=== PATIENT | female | born 1960 | race Caucasian/White ===

== ENCOUNTER 2016-07-28 07:58 | Emergency (ER) | payer BC, OTHER ==
[~2016-07-28] VITALS: Ht 160 cm; Wt 100.3 kg
[~2016-07-28 07:58] MED LIST: ESTR1TAB2 PO; HYDR25TA4 PO; LEVO112T4 PO; LISI-461 PO
[2016-07-28 08:06] VITALS: TEMP 36.9; Ht 160 cm; Wt 100.3 kg
[2016-07-28] MEDS ORDERED: SODIUM CHLORIDE 0.9% 500ML 500 ML IV STA (08:26)
[2016-07-28] MEDS ORDERED: ONDANSETRON INJ 2 MG/ML 2 ML VIAL IV STA (08:44)
[2016-07-28] MEDS ORDERED: OPTIRAY 320 IV PRN (08:45)
--- NOTE | 2016-07-28 08:49 | EMERGENCY ROOM VISIT NOTE ---
History First contact with patient: 08:16 Chief Complaint: FLANK PAIN Stated Complaint: BACK PAIN, NAUSEA, RT SIDE PAIN History of Present Illness The patient is a 55 year old female who presents to the Emergency Room via private vehicle with complaints of "back pain, nausea, right side pain". The patient states that she has had lower back pain since Sunday this sometimes will go the entire way across her low back and has seen a chiropractor 3 times. She complains of nausea and vomiting times the past 2 weeks off and on. She notes that 2 days ago the right lower abdominal pain began that his been off and on and today is not going away. She also notes spotting. She states that 2 weeks ago she began with vomiting, and was with her granddaughter who had a similar illness. She notes she has been vomiting off and on since that time. She believes that she put her back out from vomiting so much. She has also had 2 nosebleeds. She notes that she has had the back pain before. She feels that she has right lower quadrant abdominal pain that radiates across. She rates the pain as an 8/10. There is associated nausea, and cold sensation. She notes that she should not be spotting, but she has had a complete hysterectomy. She denies any falls or recent injury, chest pain, shortness of breath, urinary symptoms, vaginal discharge. She did have ovarian cancer in the past. Review of Systems A complete 10-point Review of Systems was discussed with the patient, with pertinent positives and negatives listed in the History of Present Illness. All remaining Review of Systems questions can be considered negative unless otherwise specified. Past Medical/Surgical History Medical Problems: (1) Family history: Ovarian carcinoma Family History No pertinent history. Social History Smoking Status: Never Smoker Marital Status: Housing Status: lives with family Current/Historical Medications Scheduled Estradiol (Estrace), 1 MG PO DAILY Hydrochlorothiazide (Hctz), 25 MG PO DAILY Levothyroxine Sodium (Levothyroxine Sodium), 112 MCG PO DAILY Lisinopril (Zestril), 10 MG PO DAILY Scheduled PRN Oxycodone Ir (Roxicodone Ir), 1-2 TAB PO Q4H PRN for Pain Allergies Coded Allergies: Codeine (Unverified Allergy, Intermediate, HIVES, 07/28/16) Physical Exam Vital Signs Date Time Temp Pulse Resp B/P Pulse Ox O2 Delivery O2 Flow Rate FiO2 07/28/16 13:04 61 16 147/88 07/28/16 11:53 58 16 136/71 97 Room Air 07/28/16 10:10 61 20 134/85 93 Room Air 07/28/16 08:06 36.9 73 18 149/89 96 Room Air Physical Exam VITAL SIGNS - Vital signs and nursing notes were reviewed. GENERAL -55-year-old female appearing her stated age who is in no acute distress. Communicates well with provider and answers questions appropriately. SKIN - Without rashes. HEAD - NC/AT. EYES - PERRL with EOMI bilaterally. Sclera anicteric. Palpebral conjunctiva pink and moist with no injection noted. EARS - No deformities of external structures noted on gross examination bilaterally. No pain elicited with palpation of the tragus bilaterally. External auditory canals without discharge or otorrhea. Tympanic membranes pearly velasquez without retraction or bulging. No fluid or purulent material visualized behind the TM. Handle of malleus, umbo, cone of light, pars tensa/ flaccid all easily visualized. NOSE - Midline and without cyanosis. No epistaxis or purulent drainage noted. Septum midline without deviation or septal hematoma noted. MOUTH/OROPHARYNX - Without perioral cyanosis. Buccal mucosa pink and moist and without leukoplakia. Tongue midline with equal elevation of palate bilaterally. No tonsillar hypertrophy, erythema, or exudates noted. Good dentition noted. NECK - Neck with FROM. Supple to palpation. No lymphadenopathy noted. No nuchal rigidity. LUNGS - Chest wall symmetric without accessory muscle use, intercostals retractions, or central cyanosis. Normal vesicular breath sounds CTA B/L. No wheezes, rales, or rhonchi appreciated. CARDIAC - RRR with S1/S2. No murmur, rubs, or gallops appreciated. ABDOMEN - Abdominal contour without pulsations or visible masses. BS normoactive all four quadrants. There is right lower quadrant tenderness. No palpable masses, hepatosplenomegaly, or ascites noted. EXTREMITIES - No clubbing or peripheral cyanosis. No pretibial edema present.+5/ 5 strength noted in UE/LE bilaterally. NEUROLOGIC - Cranial nerves II through XII grossly intact. Sensory intact to light touch throughout. Patellar reflexes +2/4. PSYCH - A&Ox3 and cooperates fully with examiner. Pt is very pleasant and interacts well with examiner. Medical Decision & Procedures ER Provider Diagnostic Interpretation: CT ABD/PELVIS IV AND ORAL CONT CLINICAL HISTORY: RLQ abdominal pain, right flank pain COMPARISON STUDY: 04/12/2015 TECHNIQUE: Following the IV administration of 119 mL of Optiray-320, CT scan of the abdomen and pelvis was performed from the lung bases to the proximal femurs. Images are reviewed in the axial, sagittal, and coronal planes. IV contrast was administered without complication. CT DOSE: 1036.98 mGy.cm FINDINGS: Lower chest: There are minor basilar atelectatic changes. Liver: The contrast-enhanced liver is normal in size, contour, and attenuation. There is no intrahepatic biliary ductal dilatation. The hepatic veins and portal veins are patent. Gallbladder: Multiple gallstones are visualized. Spleen: Normal in size and attenuation. Pancreas: Unremarkable. Adrenal glands: Unremarkable. Kidneys: There is symmetric renal cortical enhancement. The kidneys are normal in size without hydronephrosis. Bowel: There are no transition zones indicate bowel obstruction. The appendix appears normal. There is no acute diverticulitis. There is a moderate amount of stool within the rectosigmoid. There is a ventral hernia containing a knuckle of small bowel. This is nonobstructing. There is additional fat-containing left-sided ventral hernia. There is a small fat-containing umbilical hernia. Peritoneum: There is no intraperitoneal free air or abdominal ascites. Vasculature: The abdominal aorta is normal in course and caliber. Adenopathy: None. Pelvic viscera: The uterus appears surgically absent. There are cystic lesions in the cervix, likely representing nabothian gland cysts. Skeletal structures: There is a 14 mm sclerotic lesion within the left acetabulum. IMPRESSION: 1. No evidence of bowel obstruction. No evidence of free air 2. Normal appendix 3. No evidence of acute diverticulitis 4. Cholelithiasis 5. Ventral hernia containing a knuckle of small bowel. There is no current evidence of obstruction 6. Moderate amount of stool within the rectosigmoid Electronically signed by: Dash Dunlap M.D. 07/28/2016 11:38 AM Dictated Date/Time: 07/28/2016 11:32 AM Laboratory Results 07/28/16 08:40 Red Blood Count 4.38, Mean Corpuscular Volume 83.8, Mean Corpuscular Hemoglobin 28.1, Mean Corpuscular Hemoglobin Concent 33.5, Mean Platelet Volume 10.2, Neutrophils (%) (Auto) 77.2, Lymphocytes (%) (Auto) 12.2, Monocytes (%) (Auto) 8.0, Eosinophils (%) (Auto) 2.0, Basophils (%) (Auto) 0.5, Neutrophils # (Auto) 6.57, Lymphocytes # (Auto) 1.04, Monocytes # (Auto) 0.68, Eosinophils # (Auto) 0.17, Basophils # (Auto) 0.04 07/28/16 08:40 Test 07/28/16 08:30 07/28/16 08:40 Urine Color YELLOW Urine Appearance CLEAR (CLEAR) Urine pH 7.0 (4.5-7.5) Urine Specific Dobson 1.019 (1.000-1.030) Urine Protein NEG (NEG) Urine Glucose (UA) NEG (NEG) Urine Ketones NEG (NEG) Urine Occult Blood 2+ (NEG) Urine Nitrite NEG (NEG) Urine Bilirubin NEG (NEG) Urine Urobilinogen NEG (NEG) Urine Leukocyte Esterase NEG (NEG) Urine WBC (Auto) 1-5 /hpf (0-5) Urine RBC (Auto) 0-4 /hpf (0-4) Urine Hyaline Casts (Auto) 1-5 /lpf (0-5) Urine Epithelial Cells (Auto) >30 /lpf (0-5) Urine Bacteria (Auto) NEG (NEG) White Blood Count 8.51 K/uL (4.8-10.8) Red Blood Count 4.38 M/uL (4.2-5.4) Hemoglobin 12.3 g/dL (12.0-16.0) Hematocrit 36.7 % (37-47) Mean Corpuscular Volume 83.8 fL (80-100) Mean Corpuscular Hemoglobin 28.1 pg (25-34) Mean Corpuscular Hemoglobin Concent 33.5 g/dl (32-36) Platelet Count 221 K/uL (130-400) Mean Platelet Volume 10.2 fL (7.4-10.4) Neutrophils (%) (Auto) 77.2 % Lymphocytes (%) (Auto) 12.2 % Monocytes (%) (Auto) 8.0 % Eosinophils (%) (Auto) 2.0 % Basophils (%) (Auto) 0.5 % Neutrophils # (Auto) 6.57 K/uL (1.4-6.5) Lymphocytes # (Auto) 1.04 K/uL (1.2-3.4) Monocytes # (Auto) 0.68 K/uL (0.11-0.59) Eosinophils # (Auto) 0.17 K/uL (0-0.5) Basophils # (Auto) 0.04 K/uL (0-0.2) RDW Standard Deviation 40.1 fL (36.4-46.3) RDW Coefficient of Variation 13.2 % (11.5-14.5) Immature Granulocyte % (Auto) 0.1 % Immature Granulocyte # (Auto) 0.01 K/uL (0.00-0.02) Anion Gap 9.0 mmol/L (3-11) Est Creatinine Clear Calc Drug Dose 73.0 ml/min Estimated GFR () 76.1 Estimated GFR (Non- 65.7 BUN/Creatinine Ratio 17.7 (10-20) Calcium Level 9.3 mg/dl (8.5-10.1) Total Bilirubin 1.2 mg/dl (0.2-1) Aspartate Amino Transf (AST/SGOT) 82 U/L (15-37) Alanine Aminotransferase (ALT/SGPT) 51 U/L (12-78) Alkaline Phosphatase 100 U/L (45-117) Total Creatine Kinase 108 U/L (26-192) Creatine Kinase MB 1.1 ng/ml (0.5-3.6) Creatine Kinase MB Ratio 1.0 (0-3.0) Total Protein 7.6 gm/dl (6.4-8.2) Albumin 3.9 gm/dl (3.4-5.0) Globulin 3.7 gm/dl (2.5-4.0) Albumin/Globulin Ratio 1.1 (0.9-2) Amylase Level 38 U/L (25-115) Medications Administered Medications (Trade) Dose Ordered Sig/Nyasia Route Start Time Stop Time Status Last Admin Dose Admin Sodium Chloride (Nss 500ml) 500 ml @ 999 mls/hr Q31M STAT IV 07/28/16 08:26 07/28/16 08:56 DC 07/28/16 08:49 999 MLS/HR Ondansetron HCl (Zofran Inj) 4 mg NOW STAT IV 07/28/16 08:44 07/28/16 08:45 DC 07/28/16 08:54 4 MG Medical Decision Patient was seen and evaluated as above. After obtaining a thorough history and physical examination of workup was initiated. Patient is afebrile, and has stable vital signs. I'm concerned for acute appendicitis. There is also concern for bowel obstruction as the patient has had multiple abdominal surgeries. Patient also notes spotting, history of ovarian cancer with removal of the uterus. There is concern for metastasis. She did not want anything for pain. CBC reveals slightly low hematocrit, otherwise unremarkable. Sodium slightly low at 134, glucose elevated at 119, total bilirubin elevated at 1.2 and AST at 82. Urine reveals 2+ occult blood, greater than [address] scan of the abdomen was obtained secondary to subjective and objective is a findings. Results as above. I agree with radiologist findings. Patient was educated upon these findings. There is evidence of hernia, without obstruction. I do not appreciate any surgical nature to this at this emergent time. Patient is a follow-up with a general surgeon regarding today's findings. She was given Zofran for her nausea here. She notes that she has been taking Tylenol lately, but not greater than the recommended amount. The etiology of the patient's pain is unclear at this time, however I do believe follow-up is important as there is concern for potential metastasis, especially given the spotting as well as the finding on the sclerotic lesion in the left acetabulum. This does not correlate with the patient's pain. Patient was educated up on the importance of follow-up. She was educated upon management today's findings. She did request a small prescription of medication which I do believe is reasonable. She was prescribed OxyIR. She is to return with any worsening of her symptoms. She was educated upon the potential for incarceration, and is to return with any worsening or new/concerning symptoms. She was educated upon management of these findings, questions answered prior to discharge, was educated upon worrisome symptoms in which to return and was discharged home in good condition. Patient did appear comfortable upon her departure, and he was stable for discharge at this time. In evaluation treatment this patient following differential diagnoses were entertained: Metastasis, appendicitis, viral gastroenteritis, muscle strain, pyelonephritis, UTI, among others. [place] Drug Monitoring Program Search Results: patient reviewed within database, no issues identified Impression Primary Impression: Flank pain Departure Information Dispostion Home / Self-Care Condition GOOD Prescriptions Oxycodone Ir (Roxicodone Ir) 5 Mg Tab 1-2 TAB PO Q4H Y for Pain, #15 TAB For Initial Treatment Prov: Joaquin Loo PA-C 07/28/16 Referrals Mark Rose M.D. (PCP) Elisha Park MD Patient Instructions My [facility] Additional Instructions You have been treated in the Emergency Department your Abdominal Pain. Laboratory results and imaging studies have ruled out any emergent causes for your abdominal pain which would warrant admission or surgery emergently. There are several hernias of which you need to follow up for, please call the physician number above (general surgeon). If your abdominal pain would worsen, please return as we discussed. Please have your liver chemicals and bilirubin repeated with her family doctor. You have been prescribed Oxy IR to be used for pain control. This is a narcotic medication. You cannot drive or consume alcohol while on this medicine. This medicine should only be used for pain that cannot be controlled with over-the- counter pain medicines. For pain control, you can use the following [id number] medicines (if >12 yo): - Regular strength (325mg/tab) Tylenol (acetaminophen) 2 tabs every 4-6 hours as needed. Do not exceed 12 tablets in a 24 hour period. Avoid taking more than 4 grams (4000 mg) of Tylenol per day. This includes any other sources of acetaminophen you may take on a regular basis. - Regular strength (200 mg/tab) Advil (ibuprofen) 1-2 tabs every 4-6 hours as needed. Do not exceed a dose of 3200 mg per day. Drink plenty of water and stay well hydrated. As with any trip to the Emergency Department, you should follow-up with your Primary Care Provider from today's visit. Return to the emergency department if your symptoms persist despite treatment plan outlined above or if the following symptoms occur: increased fevers, chills , worsening nausea/vomiting, blood in your stool or urine.
[2016-07-28 08:53] LABS: BASO % 0.5 %; BASO ABS # 0.04 K/uL (0-0.2); COMPLETE YES; HEMATOCRIT 36.7 % (37-47); IG% 0.1 %; LYMPH % 12.2 %; LYMPH ABS # 1.04 K/uL (1.2-3.4); MEAN CELL VOLUME 83.8 fL (80-100); MEAN CORPUSCULAR HEMOGLOBIN 28.1 pg (25-34); MEAN CORPUSCULAR HGB CONC 33.5 g/dl (32-36); MEAN PLATELET VOLUME 10.2 fL (7.4-10.4); NEUT % 77.2 %; PLATELET COUNT 221 K/uL (130-400); RED BLOOD COUNT 4.38 M/uL (4.2-5.4); WHITE BLOOD COUNT 8.51 K/uL (4.8-10.8)
[2016-07-28 09:01] LABS: URINE APPEARANCE CLEAR (CLEAR); URINE BILIRUBIN NEG (NEG); URINE COLOR YELLOW; URINE EPITHELIAL CELL AUTO >30 /lpf (0-5); URINE NITRITE NEG (NEG); URINE SPECIFIC GRAVITY 1.019 (1.000-1.030); UROBILINOGEN NEG (NEG); ZZUR CULT IF INDIC CLEAN CATCH NO
[2016-07-28 09:08] LABS: BUN/CREATININE RATIO 17.7 (10-20); CALCIUM 9.3 mg/dl (8.5-10.1); CREATININE 0.96 mg/dl (0.60-1.20); POTASSIUM 3.7 mmol/L (3.5-5.1)
[2016-07-28 09:13] LABS: ALB/GLOB RATIO 1.1 (0.9-2)
[2016-07-28 09:19] LABS: MANUAL MICROSCOPIC REQUIRED? NO; REVIEW REQ? NO
--- NOTE | 2016-07-28 11:39 | DIAGNOSTIC IMAGING REPORT ---
CT ABD/PELVIS IV AND ORAL CONT CLINICAL HISTORY: RLQ abdominal pain, right flank pain COMPARISON STUDY: 04/12/2015 TECHNIQUE: Following the IV administration of 119 mL of Optiray-320, CT scan of the abdomen and pelvis was performed from the lung bases to the proximal femurs. Images are reviewed in the axial, sagittal, and coronal planes. IV contrast was administered without complication. CT DOSE: 1036.98 mGy.cm FINDINGS: Lower chest: There are minor basilar atelectatic changes. Liver: The contrast-enhanced liver is normal in size, contour, and attenuation. There is no intrahepatic biliary ductal dilatation. The hepatic veins and portal veins are patent. Gallbladder: Multiple gallstones are visualized. Spleen: Normal in size and attenuation. Pancreas: Unremarkable. Adrenal glands: Unremarkable. Kidneys: There is symmetric renal cortical enhancement. The kidneys are normal in size without hydronephrosis. Bowel: There are no transition zones indicate bowel obstruction. The appendix appears normal. There is no acute diverticulitis. There is a moderate amount of stool within the rectosigmoid. There is a ventral hernia containing a knuckle of small bowel. This is nonobstructing. There is additional fat-containing left-sided ventral hernia. There is a small fat-containing umbilical hernia. Peritoneum: There is no intraperitoneal free air or abdominal ascites. Vasculature: The abdominal aorta is normal in course and caliber. Adenopathy: None. Pelvic viscera: The uterus appears surgically absent. There are cystic lesions in the cervix, likely representing nabothian gland cysts. Skeletal structures: There is a 14 mm sclerotic lesion within the left acetabulum. IMPRESSION: 1. No evidence of bowel obstruction. No evidence of free air 2. Normal appendix 3. No evidence of acute diverticulitis 4. Cholelithiasis 5. Ventral hernia containing a knuckle of small bowel. There is no current evidence of obstruction 6. Moderate amount of stool within the rectosigmoid Electronically signed by: Dash Dunlap M.D. 07/28/2016 11:38 AM Dictated Date/Time: 07/28/2016 11:32 AM
[2016-07-28 11:53] VITALS: O2SAT 97
[2016-07-28] MEDS ORDERED: OXYC1TAB3 PO (12:59)
[2016-07-28 13:04] VITALS: BP 147/88; PULSE 61
[2017-01-31] MEDS ORDERED: TRAM-10 PO (13:08)
== END 2016-07-28 13:24 | disposition home or self-care (01) ==
LOC: C.EDB 07:59 → C.EDA 13:24
DX: R10.9 Unspecified abdominal pain (principal); R11.2 Nausea with vomiting, unspecified; Z85.43 Personal history of malignant neoplasm of ovary; Z80.41 Family history of malignant neoplasm of ovary

== ENCOUNTER → 2016-08-01 | Outpatient (CLI) | payer BC, OTHER ==
[~2016-08-01] MED LIST changes: +OXYC1TAB3 PO; +TRAM-10 PO
[2016-08-01 17:51] LABS: URINE APPEARANCE CLEAR (CLEAR); URINE BILIRUBIN NEG (NEG); URINE COLOR YELLOW; URINE NITRITE NEG (NEG); URINE SPECIFIC GRAVITY 1.018 (1.000-1.030); UROBILINOGEN NEG (NEG)
[2016-08-01 17:52] LABS: URINE EPITHELIAL CELL AUTO >30 /lpf (0-5)
[2016-08-01 17:54] LABS: MANUAL MICROSCOPIC REQUIRED? NO; REVIEW REQ? NO
[2016-08-01 17:58] LABS: THYROID STIMULATING HORMONE 0.214 uIu/ml (0.300-4.500)
== END | disposition home or self-care (01) ==
LOC: C.LABBFT 12:17
PROVIDERS: ATTEND Nurse Practitioner
DX: Z11.59 Encounter for screening for other viral diseases (principal); N92.0 Excessive and frequent menstruation with regular cycle; D64.9 Anemia, unspecified; E03.9 Hypothyroidism, unspecified

== ENCOUNTER → 2016-11-22 | Outpatient (CLI) | payer OTHER ==
[2016-11-22 17:57] LABS: THYROID STIMULATING HORMONE 0.892 uIu/ml (0.300-4.500)
--- NOTE | 2016-11-24 12:13 | CODING QUERY NO DIAGNOSIS ---
: 1960 TREATMENT RENDERED WITHOUT A DIAGNOSIS To promote full compliance with coding requirements relating to patient care, physician participation is requested in all cases of certified procedural coder uncertainty. Please assist us with providing a diagnosis/symptom for the test(s) below: A diagnosis/symptom was not documented on your Order. A valid diagnosis/symptom is required to bill all insurances. Please remember that we are unable to code a diagnosis of rule out, probable, possible, questionable, or suspected. Tests that require a diagnosis: DOS: 11/22/16 * CA 125 DIAGNOSIS: Provider Signature: Date: Thank you Tash Harris Health Information Management Once completed, please kindly fax back to [phone] For questions please call [phone]
== END | disposition home or self-care (01) ==
LOC: C.LABBFT 12:10
PROVIDERS: ATTEND Obstetrics & Gynecology Gynecologic Oncology
DX: E03.9 Hypothyroidism, unspecified (principal); Z85.43 Personal history of malignant neoplasm of ovary

== ENCOUNTER 2017-01-30 20:18 | Inpatient (IN) | payer OTHER ==
[~2017-01-30] VITALS: Ht 160 cm; Wt 97.8 kg
[~2017-01-30 20:18] MED LIST changes: -OXYC1TAB3 PO; +POTASSIUM CHLR 10 MEQ / WTR 10 MEQ in PREMIXED WATER 100 ML IV SCH; -TRAM-10 PO
[2017-01-30] MEDS ORDERED: ONDANSETRON INJ 2 MG/ML 2 ML VIAL ONE (20:40)
[2017-01-30] MEDS ORDERED: SODIUM CHLORIDE 0.9% 1000ML 1,000 ML IV ONE (20:41)
[2017-01-30] MEDS ORDERED: SODIUM CHLORIDE 0.9% 1000ML 1,000 ML IV STA ×2 (20:41→21:40)
[2017-01-30 20:52] LABS: BASO % 0.1 %; BASO ABS # 0.02 K/uL (0-0.2); COMPLETE YES; EOS % 0.2 %; HEMATOCRIT 40.5 % (37-47); IG% 0.4 %; LYMPH % 7.6 %; LYMPH ABS # 1.23 K/uL (1.2-3.4); MEAN CELL VOLUME 83.5 fL (80-100); MEAN CORPUSCULAR HEMOGLOBIN 28.2 pg (25-34); MEAN CORPUSCULAR HGB CONC 33.8 g/dl (32-36); MEAN PLATELET VOLUME 10.2 fL (7.4-10.4); MONO % 7.5 %; NEUT % 84.2 %; PLATELET COUNT 292 K/uL (130-400); RED BLOOD COUNT 4.85 M/uL (4.2-5.4); WHITE BLOOD COUNT 16.21 K/uL (4.8-10.8)
--- NOTE | 2017-01-30 21:00 | DIAGNOSTIC IMAGING REPORT ---
CHEST ONE VIEW PORTABLE CLINICAL HISTORY: Atypical chest pain COMPARISON STUDY: 05/28/2009 FINDINGS: The cardiac and mediastinal contours are normal. There is no evidence of focal pulmonary consolidation. There is no evidence of failure. No pleural effusions are visualized.[ IMPRESSION: No active disease in the chest. Electronically signed by: Dash Dunlap M.D. 01/30/2017 8:59 PM Dictated Date/Time: 01/30/2017 8:59 PM
[2017-01-30 21:04] LABS: ALT/SGPT 30 U/L (12-78); BLOOD UREA NITROGEN 15 mg/dl (7-18); BUN/CREATININE RATIO 15.3 (10-20); CALCIUM 9.9 mg/dl (8.5-10.1); CARBON DIOXIDE 30 mmol/L (21-32); CHLORIDE 103 mmol/L (98-107); CREATININE 0.99 mg/dl (0.60-1.20); GLUCOSE 130 mg/dl (70-99); POTASSIUM 3.1 mmol/L (3.5-5.1); SODIUM 140 mmol/L (136-145)
[2017-01-30 21:17] LABS: ALKALINE PHOSPHATASE 71 U/L (45-117); AST/SGOT 17 U/L (15-37); THYROID STIMULATING HORMONE 0.096 uIu/ml (0.300-4.500)
[2017-01-30] MEDS ORDERED: ONDANSETRON INJ 2 MG/ML 2 ML VIAL IV STA (21:40)
--- NOTE | 2017-01-30 21:40 | DIAGNOSTIC IMAGING REPORT ---
CT SCAN OF THE ABDOMEN AND PELVIS WITHOUT CONTRAST CLINICAL HISTORY: Generalized abdominal pain COMPARISON STUDY: 07/28/2016 TECHNIQUE: CT scan of the abdomen and pelvis was performed from the lung bases to the proximal femurs. Images are reviewed in the axial, sagittal, and coronal planes. IV contrast was not administered for this examination. A dose lowering technique was utilized adhering to the principles of ALARA. CT DOSE: 1029.50 mGycm FINDINGS: Lower chest: There are minimal dependent atelectatic changes Liver: The unenhanced liver is normal in size, contour, and attenuation. There is no intrahepatic biliary ductal dilatation. Gallbladder: There are multiple gallstones with gallbladder wall thickening/pericholecystic fluid. Clinical correlation regards to cholecystitis is recommended. Spleen: Normal in size and attenuation. Pancreas: Unremarkable. Adrenal glands: Unremarkable. Kidneys: No renal, ureteral, or bladder calculi are visualized. Bowel: There are no transition zones indicate bowel obstruction. There is no acute diverticulitis. The appendix appears normal. Peritoneum: There is no intraperitoneal free air or abdominal ascites. There is a small fat-containing umbilical hernia. There are several lower abdominal fat-containing ventral hernias. Vasculature: The abdominal aorta is normal in course and caliber. Adenopathy: Minimally prominent aortocaval lymph nodes remain unchanged. Pelvic viscera: The uterus appears surgically absent. There are cystic lesions in the cervix, likely representing nabothian gland cysts. Skeletal structures: There is left symphysis sclerosis. There is a stable 14 mm sclerotic lesion within the left acetabulum. IMPRESSION: 1. No evidence of bowel obstruction. No evidence of free air 2. Normal appendix 3. No evidence of acute diverticulitis 4. Fat-containing abdominal wall hernias 5. Multiple gallstones. Gallbladder wall thickening/pericholecystic fluid. Clinical correlation in regards to acute cholecystitis is recommended. Electronically signed by: Dash Dunlap M.D. 01/30/2017 9:38 PM Dictated Date/Time: 01/30/2017 9:34 PM
[2017-01-30] MEDS ORDERED: PIPERACILLIN/TAZOBACTAM 4.5 GM/100ML D5W IV STA (22:02)
[2017-01-30] MEDS ORDERED: POTASSIUM CHLORIDE 10 MEQ TABCR PO STA (22:30)
[2017-01-30] MEDS ORDERED: MAGNESIUM SULFATE 1GM / D5W 1 GM IV STA (22:41)
[2017-01-30] MEDS ORDERED: METOCLOPRAMIDE HCL INJ 5 MG/ML 2 ML VIAL IV PRN (22:45)
[2017-01-30] MEDS ORDERED: ZOLPIDEM TARTRATE 5 MG TAB PO PRN (22:45)
[2017-01-30] MEDS ORDERED: ONDANSETRON INJ 2 MG/ML 2 ML VIAL IV PRN (22:45)
[2017-01-30] MEDS ORDERED: ACETAMINOPHEN 325 MG TAB PO PRN (22:45)
--- NOTE | 2017-01-30 22:46 | Surgery Consultation ---
Consultation Date of Consultation: Jan 30, 2017. Attending Physician: History of Present Illness The patient is a 56 year old female who presents to the Emergency Room with complaints of worsening vomiting starting last night. The patient states that she does not know how many episodes she has had. She reports that it has been mass amounts and that it is green. The patient complains of abdominal pain, fever, diarrhea, headache, and chest pain. She believes her abdominal pain and chest pain could be from throwing up. The patient denies a history of a blockage or adhesions, blood in her vomit, and shortness of breath. The patient notes she has a hernia, but has not had surgery. He states that she was told that her gallbladder is full of stones. She notes a history of cancer that ended in a hysterectomy and a 19.5 lb mass removal in 2009. She notes she has been cancer free since then. I saw pt in ER, I reviewed H/P with pt, RUQ pain for a day, with nausea and vomiting, [place] [id number]. pt requests to do cholecystectomy, Past Medical/Surgical History Medical Problems: (1) Flank pain Status: Acute (2) Hand contusion Status: Acute Family History No significant family history Social History Smoking Status: Never Smoker Smokeless Tobacco Use: No Alcohol Use: occasionally Drug Use: none Marital Status: Housing Status: lives with family Allergies Coded Allergies: Codeine (Unverified Allergy, Intermediate, HIVES, 01/30/17) Home Medications Scheduled Estradiol (Estrace), 1 MG PO DAILY Hydrochlorothiazide (Hctz), 25 MG PO DAILY Levothyroxine Sodium (Levothyroxine Sodium), 112 MCG PO DAILY Lisinopril (Zestril), 10 MG PO DAILY Current Inpatient Medications Current Inpatient Medications Medications (Trade) Dose Ordered Sig/Nyasia Route Start Time Stop Time Status Last Admin Dose Admin Sodium Chloride 1,000 ml @ 200 mls/hr Q5H ONCE IV 01/30/17 20:41 01/31/17 01:40 Sodium Chloride 1,000 ml @ 999 mls/hr Q1H1M STAT IV 01/30/17 21:40 01/30/17 22:40 01/30/17 21:47 999 MLS/HR Review of Systems Constitutional: No fever, No chills, No sweats, No weight loss, No weakness, No fatigue, No problem reported Eyes: No worsening of vision, No eye pain, No redness, No discharge, No diplopia, No problem reported ENT: No hearing loss, No unusual epistaxis, No nasal symptoms, No sore throat, No tinnitus, No dental problems, No trouble swallowing, No problem reported Respiratory: No cough, No sputum, No wheezing, No shortness of breath, No dyspnea on exertion, No dyspnea at rest, No hemoptysis, No problem reported Cardiovascular: No chest pain, No orthopnea, No PND, No edema, No claudication , No palpitations, No problem reported Abdomen: + pain, + nausea, + vomiting Musculoskeletal: No joint pain, No muscle pain, No swelling, No calf pain, No problem reported Neurologic: No memory loss, No paralysis, No weakness, No numbness/tingling, No vertigo, No balance problems, No problem reported Psychiatric: No depression symptoms, No anhedonism, No anxiety, No insomnia, No substance abuse, No problem reported Endocrine: No fatigue, No excessive thirst, No excessive urination, No problem reported Hematologic / Lymphatic: No abnormal bleeding/bruising, No clotting problems, No swollen lymph nodes, No night sweats, No problem reported Physical Exam Date Time Temp Pulse Resp B/P (MAP) Pulse Ox O2 Delivery O2 Flow Rate FiO2 01/30/17 20:23 36.8 82 16 157/86 99 Room Air General Appearance: WD/WN, + mild distress Head: normocephalic Eyes: normal inspection ENT: normal ENT inspection Neck: supple, no JVD Respiratory/Chest: chest non-tender, lungs clear Cardiovascular: regular rate, rhythm, no edema, no gallop, no JVD Abdomen/GI: + tenderness, + guarding (tenderness at RUQ, ) Back: normal inspection Extremities/Musculoskelatal: normal inspection, no calf tenderness, normal capillary refill Neurologic/Psych: no motor/sensory deficits, alert, normal mood/affect Skin: normal color, warm/dry Laboratory Results Last 24 Hours Test 01/30/17 20:30 White Blood Count 16.21 K/uL Red Blood Count 4.85 M/uL Hemoglobin 13.7 g/dL Hematocrit 40.5 % Mean Corpuscular Volume 83.5 fL Mean Corpuscular Hemoglobin 28.2 pg Mean Corpuscular Hemoglobin Concent 33.8 g/dl Platelet Count 292 K/uL Mean Platelet Volume 10.2 fL Neutrophils (%) (Auto) 84.2 % Lymphocytes (%) (Auto) 7.6 % Monocytes (%) (Auto) 7.5 % Eosinophils (%) (Auto) 0.2 % Basophils (%) (Auto) 0.1 % Neutrophils # (Auto) 13.64 K/uL Lymphocytes # (Auto) 1.23 K/uL Monocytes # (Auto) 1.22 K/uL Eosinophils # (Auto) 0.04 K/uL Basophils # (Auto) 0.02 K/uL RDW Standard Deviation 39.3 fL RDW Coefficient of Variation 12.9 % Immature Granulocyte % (Auto) 0.4 % Immature Granulocyte # (Auto) 0.06 K/uL Sodium Level 140 mmol/L Potassium Level 3.1 mmol/L Chloride Level 103 mmol/L Carbon Dioxide Level 30 mmol/L Anion Gap 7.0 mmol/L Blood Urea Nitrogen 15 mg/dl Creatinine 0.99 mg/dl Est Creatinine Clear Calc Drug Dose 69.0 ml/min Estimated GFR () 72.8 Estimated GFR (Non- 62.8 BUN/Creatinine Ratio 15.3 Random Glucose 130 mg/dl Calcium Level 9.9 mg/dl Total Bilirubin 0.4 mg/dl Direct Bilirubin < 0.1 mg/dl Aspartate Amino Transf (AST/SGOT) 17 U/L Alanine Aminotransferase (ALT/SGPT) 30 U/L Alkaline Phosphatase 71 U/L Total Protein 8.4 gm/dl Albumin 4.2 gm/dl Lipase 117 U/L Thyroid Stimulating Hormone (TSH) 0.096 uIu/ml Assessment & Plan CT scan- IMPRESSION: 1. No evidence of bowel obstruction. No evidence of free air 2. Normal appendix 3. No evidence of acute diverticulitis 4. Fat-containing abdominal wall hernias 5. Multiple gallstones. Gallbladder wall thickening/pericholecystic fluid. Clinical correlation in regards to acute cholecystitis is recommended. IMP: acute cholecystitis, cholelithiasis Plan. I recommend to do laparoscopic cholecystectomy, possible open or cholangiogram, D/W benefits, risks nnd alternatives of the procedure, the risks - infection, bleeding, injury CBD, Bwel, [place], risks of anesthesia, pt understood , she agrees with the plan, I answered all questions,
--- NOTE | 2017-01-30 22:47 | History and Physical ---
History & Physical Date & Time of Service: Jan 30, 2017 at 22:44 Chief Complaint: Vomiting, Sore Belly Primary Care Physician: Mark Rose M.D. History of Present Illness Source: patient 56 y/o F Hx Hypothyroidism, HTN, obesity. Pt presents with acute onset and progressive abdominal pain, nausea and copious bilious vomiting. She has not had a fever. Denies CP, SOB or diarrhea. A CT abdomen is consistent with acute cholecystitis. The pt was evaluated by surgery on arrival to the ER. It is requested that the hospitalist service assume care of the pt following surgery. Past Medical/Surgical History Medical Problems: 1) Hypothyroidism 2) Obesity 3) HTN 4) Ovarian mass - 19 lb mass resected - does not know specifics Family History No significant family history Mother owing to CA Father COPD Social History Smoking Status: Never Smoker Marital Status: Immunizations History of Influenza Vaccine: No History of Tetanus Vaccine?: Unknown History of Pneumococcal: No History of Hepatitis B Vaccine: Unknown Multi-Drug Resistant Organisms History of MDRO: No Allergies Coded Allergies: Codeine (Unverified Allergy, Intermediate, HIVES, 01/30/17) Home Medications Scheduled Estradiol (Estrace), 1 MG PO DAILY Hydrochlorothiazide (Hctz), 25 MG PO DAILY Levothyroxine Sodium (Levothyroxine Sodium), 112 MCG PO DAILY Lisinopril (Zestril), 10 MG PO DAILY Review of Systems Constitutional: + chills, + sweats, No fever Eyes: No worsening of vision ENT: No hearing loss, No unusual epistaxis, No nasal symptoms Respiratory: No cough, No sputum, No wheezing Cardiovascular: + chest pain (Cebtral - epigastric - related to vomiting), No orthopnea, No PND Abdomen: + pain, + nausea, + vomiting Musculoskeletal: No joint pain, No muscle pain Genitourinary - Female: No dysuria, No urinary frequency, No urinary urgency Neurologic: No memory loss, No paralysis, No weakness Psychiatric: No depression symptoms Endocrine: No fatigue Hematologic / Lymphatic: No abnormal bleeding/bruising Integumentary: No rash Allergic / Immunologic: No environmental allergies Physical Exam Vital Signs Date Time Temp Pulse Resp B/P (MAP) Pulse Ox O2 Delivery O2 Flow Rate FiO2 01/30/17 20:23 36.8 82 16 157/86 99 Room Air General Appearance: + pertinent finding (Uncomfortable appearing, overweight, middle-aged female - no distress) Head: normocephalic, atraumatic Eyes: normal inspection ENT: normal ENT inspection, hearing grossly normal, TMs normal, pharynx normal Neck: supple, no JVD Respiratory/Chest: chest non-tender, lungs clear, normal breath sounds Cardiovascular: regular rate, rhythm, no edema, no gallop, no JVD, no murmur Abdomen/GI: + pertinent finding (Diffusely tender) Back: normal inspection, no CVA tenderness Extremities/Musculoskelatal: normal inspection, no calf tenderness, normal capillary refill, no pedal edema, normal range of motion Neurologic/Psych: [employer] II-XII nml as tested, no motor/sensory deficits, alert, oriented x 3 Skin: normal color Diagnostics Laboratory Results Results Past 24 Hours Test 01/30/17 20:30 Range/Units White Blood Count 16.21 4.8-10.8 K/uL Red Blood Count 4.85 4.2-5.4 M/uL Hemoglobin 13.7 12.0-16.0 g/dL Hematocrit 40.5 37-47 % Mean Corpuscular Volume 83.5 80-100 fL Mean Corpuscular Hemoglobin 28.2 25-34 pg Mean Corpuscular Hemoglobin Concent 33.8 32-36 g/dl Platelet Count 292 130-400 K/uL Mean Platelet Volume 10.2 7.4-10.4 fL Neutrophils (%) (Auto) 84.2 % Lymphocytes (%) (Auto) 7.6 % Monocytes (%) (Auto) 7.5 % Eosinophils (%) (Auto) 0.2 % Basophils (%) (Auto) 0.1 % Neutrophils # (Auto) 13.64 1.4-6.5 K/uL Lymphocytes # (Auto) 1.23 1.2-3.4 K/uL Monocytes # (Auto) 1.22 0.11-0.59 K/uL Eosinophils # (Auto) 0.04 0-0.5 K/uL Basophils # (Auto) 0.02 0-0.2 K/uL RDW Standard Deviation 39.3 36.4-46.3 fL RDW Coefficient of Variation 12.9 11.5-14.5 % Immature Granulocyte % (Auto) 0.4 % Immature Granulocyte # (Auto) 0.06 0.00-0.02 K/uL Sodium Level 140 136-145 mmol/L Potassium Level 3.1 3.5-5.1 mmol/L Chloride Level 103 98-107 mmol/L Carbon Dioxide Level 30 21-32 mmol/L Anion Gap 7.0 3-11 mmol/L Blood Urea Nitrogen 15 7-18 mg/dl Creatinine 0.99 0.60-1.20 mg/dl Est Creatinine Clear Calc Drug Dose 69.0 ml/min Estimated GFR () 72.8 Estimated GFR (Non- 62.8 BUN/Creatinine Ratio 15.3 10-20 Random Glucose 130 70-99 mg/dl Calcium Level 9.9 8.5-10.1 mg/dl Total Bilirubin 0.4 0.2-1 mg/dl Direct Bilirubin < 0.1 0-0.2 mg/dl Aspartate Amino Transf (AST/SGOT) 17 15-37 U/L Alanine Aminotransferase (ALT/SGPT) 30 12-78 U/L Alkaline Phosphatase 71 45-117 U/L Total Protein 8.4 6.4-8.2 gm/dl Albumin 4.2 3.4-5.0 gm/dl Lipase 117 73-393 U/L Thyroid Stimulating Hormone (TSH) 0.096 0.300-4.500 uIu/ml Diagnostic Radiology CT abdomen 1. No evidence of bowel obstruction. No evidence of free air 2. Normal appendix 3. No evidence of acute diverticulitis 4. Fat-containing abdominal wall hernias 5. Multiple gallstones. Gallbladder wall thickening/pericholecystic fluid. Clinical correlation in regards to acute cholecystitis is recommended. Impression Assessment and Plan 56 y/o F Hx Hypothyroidism, HTN, obesity. Pt presents with acute onset and progressive abdominal pain, nausea and copious bilious vomiting. She has not had a fever. Denies CP, SOB or diarrhea. A CT abdomen is consistent with acute cholecystitis. The pt was evaluated by surgery on arrival to the ER. It is requested that the hospitalist service assume care of the pt following surgery. 1) Acute cholecystitis - Pt to proceed to OR - placed on Unasyn, aggressive IVF - narcotics and antiemetics provided PRN. She does not have any appreciable cardiovascular risks for surgery and her RCRI is 0.4%. She is at [facility] - may need BIPAP for a period following surgery. 2) Hypothyroidism - TSH is low - would hold off on Synthroid for a few days and follow up with primary prior to resuming. 3) HTN - antihypertensives held - can resume AM or sub post-op if needed. Full code - SCDs Total time for this admit including review of labs, meds, imaging, records - discussion with pt and ER attending - 38 min Level of Care Med/Surg Resuscitation Status FULL RESUSCITATION VTE Prophylaxis VTE Risk Assessment Done? Y/N: Yes Risk Level: Moderate Given or contraindicated: SCD's
[2017-01-30] MEDS ORDERED: BUPIVACAINE 0.5 % 5 MG/1 ML MPF 30ML VIAL ONE (23:29)
[2017-01-30] MEDS ORDERED: BACITRACIN OINT 15 GM TUBE ONE (23:29)
[2017-01-30] MEDS ORDERED: LIDOCAINE HCL 1% 20 ML VIAL ONE (23:29)
[2017-01-30] MEDS ORDERED: FENTANYL CITRATE INJ 50 MCG/1 ML 2 ML VIAL ONE (23:52)
[2017-01-30] MEDS ORDERED: MIDAZOLAM HCL 1 MG/ML 2ML VIAL ONE (23:52)
[2017-01-31] VITALS (10 sets, daily range): BP systolic 105–125; BP diastolic 63–78; PULSE 65–83; TEMP 36.3–37.3; O2SAT 94–99; Ht 160 cm; Wt 97.8 kg
--- NOTE | 2017-01-31 00:09 | History & Physical Bridge Note ---
H&P Re-Evaluation Bridge Note: I have examined the patient, reviewed the History & Physical and in the interval since the performance of the History & Physical I have noted the following changes of clinical significance: No changes noted
[2017-01-31] MEDS ORDERED: SCOPOLAMINE 1.5 MG TDSY TD ONE (00:29)
[2017-01-31] MEDS ORDERED: CEFAZOLIN SOD 1 GM VIAL ONE (00:30)
[2017-01-31] MEDS ORDERED: METOCLOPRAMIDE HCL INJ 5 MG/ML 2 ML VIAL ONE (00:56)
[2017-01-31] MEDS ORDERED: SUCCINYLCHOLINE 100MG/5ML SYR IV ONE (00:56)
[2017-01-31] MEDS ORDERED: ONDANSETRON INJ 2 MG/ML 2 ML VIAL ONE (00:56)
[2017-01-31] MEDS ORDERED: NEOSTIGMINE METHYLSULFATE 5 MG/5 ML SYR ONE (00:56)
[2017-01-31] MEDS ORDERED: PROPOFOL IV EMULSION 10 MG/ML 20 ML VIAL IV ONE (00:56)
[2017-01-31] MEDS ORDERED: GLYCOPYRROLATE INJ 0.2 MG/ML VIAL ONE (00:56)
[2017-01-31] MEDS ORDERED: ROCURONIUM BROMIDE 10 MG/ML 5 ML VIAL IV ONE ×2 (00:56→02:51)
[2017-01-31] MEDS ORDERED: FENTANYL CITRATE INJ 50 MCG/1 ML 2 ML VIAL ONE (01:35)
--- NOTE | 2017-01-31 01:49 | EMERGENCY ROOM VISIT NOTE ---
History Report prepared by Jovany: Dian Love Under the Supervision of: Dr. [place] Paz M.D. First contact with patient: 20:27 Chief Complaint: VOMITING Stated Complaint: VOMITING, SORE BELLY History of Present Illness The patient is a 56 year old female who presents to the Emergency Room with complaints of worsening vomiting starting last night. The patient states that she does not know how many episodes she has had. She reports that it has been mass amounts and that it is green. The patient complains of abdominal pain, fever, diarrhea, headache, and chest pain. She believes her abdominal pain and chest pain could be from throwing up. The patient denies a history of a blockage or adhesions, blood in her vomit, and shortness of breath. The patient notes she has a hernia, but has not had surgery. He states that she was told that her gallbladder is full of stones. She notes a history of cancer that ended in a hysterectomy and a 19.5 lb mass removal in 2009. She notes she has been cancer free since then. Source of History: patient Onset: last night Position: other (global) Quality: other (global) Timing: worsening Associated Symptoms: + fevers, + headache, + chest pain, + abdominal pain, + diarrhea, No SOB Note: The patient denies a history of blockage or adhesions and blood in her vomit. Review of Systems See HPI for pertinent positives & negatives. A total of 10 systems reviewed and were otherwise negative. Past Medical & Surgical Medical Problems: (1) Acute cholecystitis (2) Family history: Ovarian carcinoma (3) Hernia Old medical records were reviewed. Nurse's notes were reviewed and I agree with. Family History No significant family history Social History Smoking Status: Never Smoker Drug Use: none Marital Status: Housing Status: lives with family Current/Historical Medications Scheduled Estradiol (Estrace), 1 MG PO DAILY Hydrochlorothiazide (Hctz), 25 MG PO DAILY Levothyroxine Sodium (Levothyroxine Sodium), 112 MCG PO DAILY Lisinopril (Zestril), 10 MG PO DAILY Allergies Coded Allergies: Codeine (Unverified Allergy, Intermediate, HIVES, 01/30/17) Physical Exam Vital Signs Date Time Temp Pulse Resp B/P (MAP) Pulse Ox O2 Delivery O2 Flow Rate FiO2 01/31/17 00:20 36.8 82 16 157/86 99 01/30/17 20:23 36.8 82 16 157/86 99 Room Air Physical Exam General: Well developed well nourished in no acute distress, breathing comfortably on room air. Normal speech. Uncomfortable appearing middle aged female holding emesis bag. HEENT: Normal cephalic atraumatic. Pupils are equal round and reactive to light. Sclera anicteric. Baseline disconjugate gaze. Extraocular movements are intact. Oropharynx is pink with moist mucous membranes. No swelling of the mouth lips or tongue. Neck: Supple with a midline trachea. No meningeal signs or stiffness, no JVD or bruits. No Stridor. Chest: Clear to auscultation bilaterally. No wheezes or rhonchi. No increased work of breathing. Heart: regular rate and rhythm. Abdomen: Soft, mildly diffusely tender but mostly in the right upper abdomen, no peritonitis or masses, nondistended without rebound guarding or rigidity. Extremities: No cyanosis clubbing or edema. No calf tenderness or assymetry Spine/Back. Non tender to palpation. No CVA tenderness Skin: Good turgor without rashes. Neurologic exam: Cranial nerves two through 12 are intact. Motor and sensation are intact and symmetrical throughout. Medical Decision & Procedures ER Provider Diagnostic Interpretation: Radiology results as stated below per my review and radiologist interpretation: CHEST ONE VIEW PORTABLE CLINICAL HISTORY: Atypical chest pain COMPARISON STUDY: 05/28/2009 FINDINGS: The cardiac and mediastinal contours are normal. There is no evidence of focal pulmonary consolidation. There is no evidence of failure. No pleural effusions are visualized.[ IMPRESSION: No active disease in the chest. Electronically signed by: Dash Dunlap M.D. 01/30/2017 8:59 PM Dictated Date/Time: 01/30/2017 8:[address] SCAN OF THE ABDOMEN AND PELVIS WITHOUT CONTRAST CLINICAL HISTORY: Generalized abdominal pain COMPARISON STUDY: 07/28/2016 TECHNIQUE: CT scan of the abdomen and pelvis was performed from the lung bases to the proximal femurs. Images are reviewed in the axial, sagittal, and coronal planes. IV contrast was not administered for this examination. A dose lowering technique was utilized adhering to the principles of ALARA. CT DOSE: 1029.50 mGycm FINDINGS: Lower chest: There are minimal dependent atelectatic changes Liver: The unenhanced liver is normal in size, contour, and attenuation. There is no intrahepatic biliary ductal dilatation. Gallbladder: There are multiple gallstones with gallbladder wall thickening/pericholecystic fluid. Clinical correlation regards to cholecystitis is recommended. Spleen: Normal in size and attenuation. Pancreas: Unremarkable. Adrenal glands: Unremarkable. Kidneys: No renal, ureteral, or bladder calculi are visualized. Bowel: There are no transition zones indicate bowel obstruction. There is no acute diverticulitis. The appendix appears normal. Peritoneum: There is no intraperitoneal free air or abdominal ascites. There is a small fat-containing umbilical hernia. There are several lower abdominal fat-containing ventral hernias. Vasculature: The abdominal aorta is normal in course and caliber. Adenopathy: Minimally prominent aortocaval lymph nodes remain unchanged. Pelvic viscera: The uterus appears surgically absent. There are cystic lesions in the cervix, likely representing nabothian gland cysts. Skeletal structures: There is left symphysis sclerosis. There is a stable 14 mm sclerotic lesion within the left acetabulum. IMPRESSION: 1. No evidence of bowel obstruction. No evidence of free air 2. Normal appendix 3. No evidence of acute diverticulitis 4. Fat-containing abdominal wall hernias 5. Multiple gallstones. Gallbladder wall thickening/pericholecystic fluid. Clinical correlation in regards to acute cholecystitis is recommended. Electronically signed by: Dash Dunlap M.D. 01/30/2017 9:38 PM Dictated Date/Time: 01/30/2017 9:34 PM US GALLBLADDER: Gallbladder distended with sludge and gallstones. Wall thickening measuring 5 mm with pericholecystic fluid. Findings suggest cholecystitis. Clinical and laboratory correlation requested. No biliary dilatation. CBD measures 4 mm. Liver, right kidney unremarkable. Radiologist: Lorin Millan M.D. Study ready at 23:15 and initial results transmitted at 23:34. Laboratory Results 01/30/17 20:30 Red Blood Count 4.85, Mean Corpuscular Volume 83.5, Mean Corpuscular Hemoglobin 28.2, Mean Corpuscular Hemoglobin Concent 33.8, Mean Platelet Volume 10.2, Neutrophils (%) (Auto) 84.2, Lymphocytes (%) (Auto) 7.6, Monocytes (%) (Auto) 7.5, Eosinophils (%) (Auto) 0.2, Basophils (%) (Auto) 0.1, Neutrophils # (Auto) 13.64, Lymphocytes # (Auto) 1.23, Monocytes # (Auto) 1.22, Eosinophils # (Auto) 0.04, Basophils # (Auto) 0.02 01/30/17 20:30 Test 01/30/17 20:30 White Blood Count 16.21 K/uL (4.8-10.8) Red Blood Count 4.85 M/uL (4.2-5.4) Hemoglobin 13.7 g/dL (12.0-16.0) Hematocrit 40.5 % (37-47) Mean Corpuscular Volume 83.5 fL (80-100) Mean Corpuscular Hemoglobin 28.2 pg (25-34) Mean Corpuscular Hemoglobin Concent 33.8 g/dl (32-36) Platelet Count 292 K/uL (130-400) Mean Platelet Volume 10.2 fL (7.4-10.4) Neutrophils (%) (Auto) 84.2 % Lymphocytes (%) (Auto) 7.6 % Monocytes (%) (Auto) 7.5 % Eosinophils (%) (Auto) 0.2 % Basophils (%) (Auto) 0.1 % Neutrophils # (Auto) 13.64 K/uL (1.4-6.5) Lymphocytes # (Auto) 1.23 K/uL (1.2-3.4) Monocytes # (Auto) 1.22 K/uL (0.11-0.59) Eosinophils # (Auto) 0.04 K/uL (0-0.5) Basophils # (Auto) 0.02 K/uL (0-0.2) RDW Standard Deviation 39.3 fL (36.4-46.3) RDW Coefficient of Variation 12.9 % (11.5-14.5) Immature Granulocyte % (Auto) 0.4 % Immature Granulocyte # (Auto) 0.06 K/uL (0.00-0.02) Anion Gap 7.0 mmol/L (3-11) Est Creatinine Clear Calc Drug Dose 69.0 ml/min Estimated GFR () 72.8 Estimated GFR (Non- 62.8 BUN/Creatinine Ratio 15.3 (10-20) Calcium Level 9.9 mg/dl (8.5-10.1) Total Bilirubin 0.4 mg/dl (0.2-1) Direct Bilirubin < 0.1 mg/dl (0-0.2) Aspartate Amino Transf (AST/SGOT) 17 U/L (15-37) Alanine Aminotransferase (ALT/SGPT) 30 U/L (12-78) Alkaline Phosphatase 71 U/L (45-117) Total Protein 8.4 gm/dl (6.4-8.2) Albumin 4.2 gm/dl (3.4-5.0) Lipase 117 U/L (73-393) Thyroid Stimulating Hormone (TSH) 0.096 uIu/ml (0.300-4.500) Laboratory studies as stated above per my review. Medications Administered Medications (Trade) Dose Ordered Sig/Nyasia Route Start Time Stop Time Status Last Admin Dose Admin Ondansetron HCl (Zofran Inj) 4 mg STK-MED ONCE .ROUTE 01/30/17 20:40 01/30/17 20:41 DC 01/30/17 20:40 4 MG Sodium Chloride 1,000 ml @ 999 mls/hr Q1H1M STAT IV 01/30/17 20:41 01/30/17 21:41 DC 01/30/17 20:41 999 MLS/HR Ondansetron HCl (Zofran Inj) 4 mg NOW STAT IV 01/30/17 21:40 01/30/17 21:41 DC 01/30/17 21:47 4 MG Sodium Chloride 1,000 ml @ 999 mls/hr Q1H1M STAT IV 01/30/17 21:40 01/30/17 22:40 DC 01/30/17 21:47 999 MLS/HR Piperacillin Sod/ Tazobactam Sod (Zosyn Iv) 4.5 gm NOW STAT IV 01/30/17 22:02 01/30/17 22:03 DC 01/30/17 22:29 4.5 GM Potassium Chloride (Klor-Con M10) 40 meq NOW STAT PO 01/30/17 22:30 01/30/17 22:32 DC 01/30/17 22:35 40 MEQ Magnesium Sulfate 100 ml @ 100 mls/hr NOW STAT IV 01/30/17 22:41 01/30/17 23:40 DC 01/30/17 23:26 100 MLS/HR ECG Indication: vomiting Rate (beats per minute): 56 Rhythm: sinus bradycardia Findings: nonspecific-ST abn, no ectopy Comparison ECG Date: 05/28/2009 Change: Rate has decreased. ED Course 2033: Past medical records reviewed. The patient was evaluated in room C8, and a complete history and physical examination were performed. 2039: Ordered Zofran Inj 4 mg. 2040: Ordered NSS 1000 ml @ 200 mls/hr IV, NSS 1000 ml @ 999 mls/hr IV. 2137: I reevaluated the patient and she still feels the same. She is still nauseous so I ordered more fluids and Zofran. We are waiting for the CT. 2139: Ordered NSS 1000 ml @ 999 mls/hr IV, Zofran Inj 4 mg IV. 2201: Ordered Zosyn Iv 4.5 gm IV. 2205: Discussed the patient's case with Dr. Bradshaw- Surgery. The patient will be evaluated for further management. He wants an US ordered. 2207: I reevaluated the patient and updated her on her test results. 2226: Dr. Bradshaw is taking the patient to the OR. 2229: Ordered Potassium Chloride 40 meq PO. Medical Decision Differential diagnoses include bowel obstruction, colitis, gallbladder disease, UTI, infection, metabolic abnormality, electrolyte abnormality. This patient comes in as described above . She's been feeling sick since yesterday. she's been vomiting and has right upper quadrant abdominal pain. She has known history of gallstones. She has had abdominal hernias as well but on exam I do not appreciate any significant hernias. She is not focally tender red or warm. She has a remote history ovarian cancer but has no history of bowel obstruction. IV access established and hydrated 1 L IV normal saline bolus and given Zofran 4 mg IV. She received a second dose of IV Zofran as well as further IV fluids. She does have an elevated white count. Her lipase liver functions are not elevated. EKG shows no definite ischemic changes with some nonspecific ST abnormalities .troponin is not elevated. Chest x-ray does not show any abnormalities or free air a CAT scan of her abdomen shows what appears be acute cholecystitis. I did consult the surgeon on-call Dr. Bradshaw. I gave the patient Zosyn 4.5 g IV and additionally gave her 40 mEq of potassium chloride by mouth. I also ordered an ultrasound per his request and he saw the patient ER the ultrasound further confirms acute cholecystitis and he took her to the OR for a cholecystectomy Consults Time Called: 2158 Consulting Physician: Dr. Bradshaw- Jovita Returned Call: [phone] Discussed the patient's case with Dr. Zhanna Hussein. The patient will be evaluated for further management. He wants an US ordered. Impression Primary Impression: Acute cholecystitis Additional Impressions: Vomiting Hypokalemia Scribe Attestation The scribe's documentation has been prepared under my direction and personally reviewed by me in its entirety. I confirm that the note above accurately reflects all work, treatment, procedures, and medical decision making performed by me. Departure Information Dispostion Being Evaluated By Surgeon Referrals Mark Rose M.D. (PCP) Patient Instructions My [facility] Problem Qualifiers
--- NOTE | 2017-01-31 03:20 | [facility] Post Operative Brief Note ---
Immediate Operative Summary Operative Date Jan 31, 2017. Pre-Operative Diagnosis Acute cholecystitis, cholelithiasis Post-Operative Diagnosis Acute cholecystitis, cholelithiasis Procedure(s) Performed Laparoscopic Subtotal Cholecystectomy Surgeon Dr. Bradshaw Relationship Specialist Surgeon(s) None Estimated Blood Loss 50mL Findings significant inflammation on gallbladder with gallbladder wall thickening, edema , with multiple stones Fluids (cc crystalloids) 1200ml Specimens A: Gallbladder & contents Drains KYRIE X 1 Anesthesia general Complication(s) None Disposition Recovery Room / PACU
[2017-01-31] MEDS ORDERED: HYDROmorphone INJ 0.5 MG/0.5 ML SYR IV PRN ×2 (03:30)
[2017-01-31] MEDS ORDERED: OXYCODONE/ACETAMINOPHEN 5-325 TAB PO PRN (03:30)
[2017-01-31] MEDS ORDERED: PROMETHAZINE HCL INJ 12.5 MG in SODIUM CHLORIDE 0.9% 50ML 50 ML IV PRN (03:30)
[2017-01-31] MEDS ORDERED: LABETALOL HCL IV 5 MG/ML 20ML IV PRN (03:30)
[2017-01-31] MEDS ORDERED: ATROPINE SULFATE 0.1 MG/ML 5ML SYR IV PRN (03:30)
[2017-01-31] MEDS ORDERED: ONDANSETRON INJ 2 MG/ML 2 ML VIAL IV PRN (03:30)
[2017-01-31] MEDS ORDERED: HYDROmorphone INJ 2 MG/ML SYR/VIAL IV PRN (03:30)
--- NOTE | 2017-01-31 03:47 | Anesthesiology Progress Note ---
Anesthesia Post Op Note Date & Time Jan 31, 2017 at 03:47 Vital Signs Vital Signs Past 12 Hours Date Time Temp Pulse Resp B/P (MAP) Pulse Ox O2 Delivery O2 Flow Rate FiO2 01/31/17 03:40 36.7 58 16 125/75 100 Oxymask 4 01/31/17 03:30 36.8 58 13 118/70 100 Oxymask 5 01/31/17 03:20 36.8 64 17 128/71 100 Oxymask 5 01/31/17 00:20 36.8 82 16 157/86 99 01/30/17 20:23 36.8 82 16 157/86 99 Room Air Notes Mental Status: alert / awake / arousable, participated in evaluation Pt Amnestic to Procedure: Yes Nausea / Vomiting: adequately controlled Pain: adequately controlled Airway Patency, RR, SpO2: stable & adequate BP & HR: stable & adequate Hydration State: stable & adequate Anesthetic Complications: no major complications apparent
[2017-01-31] MEDS: D5NSS + 20MEQ KCL 1,000 ML IV SCH ×3 (05:09→15:11)
[2017-01-31] MEDS: POTASSIUM CHLR 10 MEQ / WTR 10 MEQ in PREMIXED WATER 100 ML IV SCH ×2 (05:09→06:15)
[2017-01-31 05:21] LABS: BASO % 0.1 %; BASO ABS # 0.01 K/uL (0-0.2); COMPLETE YES; EOS % 0.2 %; IG% 0.3 %; LYMPH % 7.6 %; LYMPH ABS # 0.89 K/uL (1.2-3.4); MEAN CELL VOLUME 85.1 fL (80-100); MEAN CORPUSCULAR HEMOGLOBIN 26.7 pg (25-34); MEAN CORPUSCULAR HGB CONC 31.4 g/dl (32-36); MEAN PLATELET VOLUME 9.9 fL (7.4-10.4); MONO % 10.4 %; NEUT % 81.4 %; PLATELET COUNT 228 K/uL (130-400); RED BLOOD COUNT 4.23 M/uL (4.2-5.4); WHITE BLOOD COUNT 11.77 K/uL (4.8-10.8)
[2017-01-31] MEDS: AMPICILLIN/SULBACTAM SOD INJ 3,000 MG in SODIUM CHLORIDE 0.9% 100ML 100 ML IV SCH ×4 (05:55→23:43)
[2017-01-31] MEDS ORDERED: CEFAZOLIN IV 2,000 MG/60 ML D5W IV ONE (06:00)
[2017-01-31 06:07] LABS: ALB/GLOB RATIO 0.9 (0.9-2); BUN/CREATININE RATIO 13.3 (10-20); CALCIUM 8.3 mg/dl (8.5-10.1); CREATININE 1.1 mg/dl (0.60-1.20); POTASSIUM 3.6 mmol/L (3.5-5.1)
--- NOTE | 2017-01-31 07:29 | DIAGNOSTIC IMAGING REPORT ---
ABDOMINAL ULTRASOUND, RIGHT UPPER QUADRANT HISTORY: Abnormal CT. Right upper quadrant pain.. COMPARISON: Abdomen and pelvis CT 01/30/2017. FINDINGS: Pancreas: Pancreas is not well visualized due to overlying bowel gas and the patient's body habitus. Liver: Unremarkable. Gallbladder: The gallbladder is filled with small stones and sludge. There is trace pericholecystic fluid. Mild gallbladder wall thickening measuring up to 5 mm. CBD: 4 mm. Right kidney: No hydronephrosis. IMPRESSION: The gallbladder is completely filled with sludge/stones and there is mild gallbladder wall thickening with trace pericholecystic fluid. These findings suggest acute cholecystitis. Clinical and laboratory correlation are recommended. Electronically signed by: Doug Dixon M.D. 01/31/2017 7:28 AM Dictated Date/Time: 01/31/2017 7:26 AM
--- NOTE | 2017-01-31 07:43 | Surgery Progress Note ---
Surgery Progress Note Date of Service Jan 31, 2017. Subjective Post OP Day: 1 + feeling well F/U S/P laparoscopic subtotal cholecystectomy, pt is doing much better, less RUQ pain, no nausea, no vomiting, no fever, KYRIE- 20ml/4h I informed pt about OR finding and pt had subtotal cholecystectomy, base on significant inflammation of gallbladder. pt understood, Objective Vital Signs: Date Time Temp Pulse Resp B/P (MAP) Pulse Ox O2 Delivery O2 Flow Rate FiO2 01/31/17 06:29 36.3 72 16 115/73 (87) 99 Room Air 01/31/17 05:31 36.6 71 16 105/63 (77) 99 Room Air 01/31/17 05:01 36.5 65 16 112/74 (87) 98 Room Air 01/31/17 04:30 36.6 68 16 125/78 97 Room Air 01/31/17 04:30 97 Room Air 01/31/17 04:10 36.9 61 18 123/42 97 Room Air 01/31/17 04:00 36.8 64 13 132/72 100 Room Air 01/31/17 03:50 36.8 54 17 123/75 100 Oxymask 3 01/31/17 03:40 36.7 58 16 125/75 100 Oxymask 4 01/31/17 03:30 36.8 58 13 118/70 100 Oxymask 5 01/31/17 03:20 36.8 64 17 128/71 100 Oxymask 5 01/31/17 00:20 36.8 82 16 157/86 99 01/30/17 20:23 36.8 82 16 157/86 99 Room Air General Appearance: WD/WN, no apparent distress Head: normocephalic Neck: supple, no JVD Respiratory/Chest: chest non-tender, lungs clear, normal breath sounds Cardiovascular: regular rate, rhythm, no edema, no gallop, no JVD Abdomen: normal bowel sounds, non tender, non distended, soft (incision pain, ) Incision(s): clean, dry, intact, no erythema, no drainage Extremities: normal range of motion, non-tender, normal inspection Laboratory Results: Results Past 24 Hours Test 01/30/17 20:30 01/31/17 05:06 Range/Units White Blood Count 16.21 11.77 4.8-10.8 K/uL Red Blood Count 4.85 4.23 4.2-5.4 M/uL Hemoglobin 13.7 11.3 12.0-16.0 g/dL Hematocrit 40.5 36.0 37-47 % Mean Corpuscular Volume 83.5 85.1 80-100 fL Mean Corpuscular Hemoglobin 28.2 26.7 25-34 pg Mean Corpuscular Hemoglobin Concent 33.8 31.4 32-36 g/dl Platelet Count 292 228 130-400 K/uL Mean Platelet Volume 10.2 9.9 7.4-10.4 fL Neutrophils (%) (Auto) 84.2 81.4 % Lymphocytes (%) (Auto) 7.6 7.6 % Monocytes (%) (Auto) 7.5 10.4 % Eosinophils (%) (Auto) 0.2 0.2 % Basophils (%) (Auto) 0.1 0.1 % Neutrophils # (Auto) 13.64 9.60 1.4-6.5 K/uL Lymphocytes # (Auto) 1.23 0.89 1.2-3.4 K/uL Monocytes # (Auto) 1.22 1.22 0.11-0.59 K/uL Eosinophils # (Auto) 0.04 0.02 0-0.5 K/uL Basophils # (Auto) 0.02 0.01 0-0.2 K/uL RDW Standard Deviation 39.3 40.6 36.4-46.3 fL RDW Coefficient of Variation 12.9 13.1 11.5-14.5 % Immature Granulocyte % (Auto) 0.4 0.3 % Immature Granulocyte # (Auto) 0.06 0.03 0.00-0.02 K/uL Sodium Level 140 142 136-145 mmol/L Potassium Level 3.1 3.6 3.5-5.1 mmol/L Chloride Level 103 108 98-107 mmol/L Carbon Dioxide Level 30 29 21-32 mmol/L Anion Gap 7.0 5.0 3-11 mmol/L Blood Urea Nitrogen 15 15 7-18 mg/dl Creatinine 0.99 1.10 0.60-1.20 mg/dl Est Creatinine Clear Calc Drug Dose 69.0 62.1 ml/min Estimated GFR () 72.8 64.1 Estimated GFR (Non- 62.8 55.3 BUN/Creatinine Ratio 15.3 13.3 10-20 Random Glucose 130 136 70-99 mg/dl Calcium Level 9.9 8.3 8.5-10.1 mg/dl Total Bilirubin 0.4 0.3 0.2-1 mg/dl Direct Bilirubin < 0.1 0-0.2 mg/dl Aspartate Amino Transf (AST/SGOT) 17 32 15-37 U/L Alanine Aminotransferase (ALT/SGPT) 30 38 12-78 U/L Alkaline Phosphatase 71 59 45-117 U/L Total Protein 8.4 6.5 6.4-8.2 gm/dl Albumin 4.2 3.1 3.4-5.0 gm/dl Lipase 117 73-393 U/L Thyroid Stimulating Hormone (TSH) 0.096 0.300-4.500 uIu/ml Magnesium Level 2.0 1.8-2.4 mg/dl Globulin 3.4 2.5-4.0 gm/dl Albumin/Globulin Ratio 0.9 0.9-2 Assessment & Plan F/U S/P lap subtotal cholecystectomy pt is doing much better, full liquid diet to regular diet if she tolerated it, WBC down to 11,000, normal LFT may pull out KYRIE today afternoon or tomorrow, pt may discharge home today or tomorrow keep the dressing on for 4 days, she can take a shower on 02/04/2017, F/U DR. Bradshaw 1 week, pt agrees with the plan, full liquids
--- NOTE | 2017-01-31 09:25 | OPERATIVE REPORT ---
DATE OF OPERATION: 01/31/2017 PREOPERATIVE DIAGNOSIS: Acute cholecystitis, cholelithiasis. POSTOPERATIVE DIAGNOSIS: Same. PROCEDURE: Laparoscopic subtotal cholecystectomy. SURGEON: Dr. Earnest Bradshaw. ANESTHESIA: General. ESTIMATED BLOOD LOSS: About 50 mL. IV FLUIDS: 1200 mL. FINDINGS: Significant inflammation on the gallbladder. The gallbladder was significant wall thickening, edema, multiple gallstones. COMPLICATIONS: None. INDICATIONS FOR THE PROCEDURE: This is a 56-year-old female who presented to the ED with couple day history right upper quadrant pain. The pain is so severe that patient has constant nausea and vomiting. The patient was diagnosed acute cholecystitis with cholelithiasis by the CT scan and patient will be required to do laparoscopic cholecystectomy, possible open, possible cholangiogram. I did talk to the patient about the benefit and risk, alternate procedure. I indicated the risks may include but not limited such as bleeding, infection, bile leak, injury to common bile duct, injury to bowel, may need ERCP, myocardial infarction and risk of the anesthesia. The patient understands. She signed informed consent. She agreed to proceed with the procedure. I answered all questions. DETAILS OF PROCEDURE: We brought the patient to the OR, put the patient on the supine position. The patient received SCD on bilateral legs to prevent DVT. Also, the patient received 2 grams Ancef IV for prophylactic antibiotic. The patient received general anesthesia without difficulty. The abdomen was prepped and draped in routine sterile fashion. After time out, I injected the local anesthesia by using 1% lidocaine mixed with 0.5% Marcaine just above umbilical, then I made a small incision just above umbilical about 1.5 cm incision, opened fascia, opened peritoneum under direct vision. I put a Eflipe trocar in, connected to CO2 to create pneumoperitoneum. Flow rate 6 liter per minute. Pressure not more than 14 mmHg. Once we got a nice pneumoperitoneum, we put a 10 mm camera in, looked around the abdomen showed normal finding on the stomach, small bowel, large bowel and liver. However, the gallbladder showing significant inflammation. The gallbladder was significantly thickening, edema, significantly distended gallbladder showing acute cholecystitis. Then, we put another 3.5 mm trocar on the right upper quadrant. Once all trocars in I used a grasper to try to hold the gallbladder. We could not hold the gallbladder because the gallbladder was significantly distended, so I used a large needle decompressed the gallbladder, then I used the grasper to hold the base of the gallbladder, put direction to the diaphragm and put another grasper in to hold the pouch of the gallbladder, put latter to try to expose the triangle of Calot but we could not expose the triangle of Calot because the gallbladder significant inflammation, edema, wall thickening. At this moment, we tried to take down the gallbladder from the top down. Once we mobilized the gallbladder from the liver bed near the cystic duct, put 2 Endoloops just above the cystic duct and then I used harmonic to take down the gallbladder between the 2 Endoloops and then we removed more than 95% of the gallbladder. Then we used the catch bag to remove the gallbladder. We found the patient had multiple gallstones in the gallbladder inside. Then we reinserted Felipe trocar and created pneumoperitoneum, again at this moment we released the first Endoloops and then we opened the remainder piece of gallbladder and found the patient had 2 stones inside that we removed 2 stones and rechecked and no stones on the remaining piece of the gallbladder, only 5% piece of the gallbladder. At this moment, we used another Endoloop to close the skin. Then the gallbladder rechecked, no active bleeding, no bile leak. Then I used 2-0 Vicryl to close the gallbladder opening by using 2-0 Vicryl and tied the suture. Rechecked no active bleeding, no bile leak. At this moment based on the patient had significant inflammation gallbladder we did subtotal cholecystectomy, left about 5% piece of the gallbladder. We tried to avoid injury to common bile duct and we put the 10 mm KYRIE drainage in and then we removed all trocars under direct vision. No active bleeding from trocar sites. Then I closed the umbilical incision, fascial layer [id number] x2, closed subcutaneous layer by using 2-0 Vicryl, closed skin by using 4-0 Vicryl, then we closed another 3.5 mm trocar site skin only by using 4-0 Vicryl. We put the dressing on. All the instrument, needle and sponge count correct x2 at the end of the case. The gallbladder was sent to pathology. The patient tolerated the procedure well. After the procedure, the patient transferred to recovery room in stable condition. After the procedure, I did talk to the patient's about the OR finding and procedure we did and I informed him we did laparoscopic subtotal cholecystectomy. The patient's understands. The patient will be admitted to hospital. I attest to the content of the Intraoperative Record and any orders documented therein. Any exceptions are noted below. ALONZO
[2017-01-31] MEDS ORDERED: TRAM-10 PO (13:08)
--- NOTE | 2017-01-31 13:11 | Discharge Instructions ---
Discharge Instructions Date of Service Jan 31, 2017. Admission Reason for Admission: Acute Cholecystitis Discharge Discharge Diagnosis / Problem: Acute cholecystitis Discharge Goals Goal(s): Decrease discomfort, Improve function, Increase independence, Improve disease control, Learn about illness, Diagnostic testing, Therapeutic intervention, Prevent Disease Progression Activity Recommendations Activity Limitations: resume your previous activity Exercise/Sports Limitations: as tolerated . Instructions / Follow-Up Instructions / Follow-Up Patient to be discharged home after drain removed Keep the dressing on for 4 days, she can take a shower on 02/04/2017 If worsening pain, fever, please report back to ER Prescription sent for tramadol 50 mg take every 4 hrs only as needed for pain Follow up with Dr. Bradshaw 1 week Current Hospital Diet Patient's current hospital diet: Clear Liquid Diet Discharge Diet Recommended Diet: Regular Diet Procedures Procedures Performed: Laparoscopic Subtotal Cholecystectomy Pending Studies Studies pending at discharge: no Medical Emergencies . Who to Call and When: Medical Emergencies: If at any time you feel your situation is an emergency, please call 911 immediately. . Non-Emergent Contact Non-Emergency issues call your: Primary Care Provider Call Non-Emergent contact if: you have a fever, your pain is worsening . . "Provider Documentation" section prepared by Matthias Vang. . VTE Core Measure Inpt VTE Proph given/why not?: SCD's
--- NOTE | 2017-01-31 13:16 | Discharge Summary ---
Discharge Summary Date of Service Jan 31, 2017. Discharge Summary Admission Date: Jan 30, 2017 at 22:40 Discharge Date: Jan 31, 2017 Discharge Disposition: Home Principal Diagnosis: Acute cholecystitis Immunizations: Have You Had Influenza Vaccine: No History of Tetanus Vaccine?: Unknown History of Pneumococcal: No History of Hepatitis B Vaccine: Unknown Consultations: General surgery Medication Reconciliation New Medications: Tramadol (Ultram) 50 Mg Tab 50 MG PO Q4H PRN for Pain, #20 TAB Continued Medications: Estradiol (Estrace) 1 Mg Tab 1 MG PO DAILY, TAB Hydrochlorothiazide (Hctz) 25 Mg Tab 25 MG PO DAILY, TAB Levothyroxine Sodium (Levothyroxine Sodium) 112 Mcg Tab 112 MCG PO DAILY Lisinopril (Zestril) 10 Mg Tab 10 MG PO DAILY, TAB Discharge Exam Review of Systems: Constitutional: No fever, No chills, No sweats, No weakness ENT: No hearing loss, No unusual epistaxis, No nasal symptoms, No sore throat Respiratory: No cough, No sputum, No wheezing, No shortness of breath, No dyspnea on exertion Cardiovascular: No chest pain, No orthopnea, No PND, No edema Abdomen: No pain, No nausea, No vomiting, No diarrhea Musculoskeletal: No joint pain, No muscle pain, No swelling, No calf pain Genitourinary - Female: No dysuria, No urinary frequency, No urinary urgency , No urinary incontinence Neurologic: No memory loss, No paralysis, No weakness, No numbness/tingling Psychiatric: No depression symptoms, No anhedonism, No anxiety, No insomnia Endocrine: No fatigue, No excessive thirst, No excessive urination Integumentary: No rash, No itch Physical Exam: General Appearance: WD/WN, no apparent distress Eyes: normal inspection, PERRL, EOMI, sclerae normal ENT: normal ENT inspection, hearing grossly normal, TMs normal, pharynx normal Neck: supple, no adenopathy, thyroid normal, no JVD Respiratory/Chest: chest non-tender, lungs clear, normal breath sounds, no respiratory distress Cardiovascular: regular rate, rhythm, no edema, no gallop, no JVD Abdomen / GI: normal bowel sounds, non tender, soft, no organomegaly Extremities: normal inspection, no calf tenderness, normal capillary refill , no pedal edema Neurologic/Psychiatric: no motor/sensory deficits, alert, normal mood/affect , oriented x 3 Hospital Course 56 y/o F Hx Hypothyroidism, HTN, obesity. Pt presents with acute onset and progressive abdominal pain, nausea and copious bilious vomiting. She has not had a fever. Denies CP, SOB or diarrhea. A CT abdomen is consistent with acute cholecystitis. The pt was evaluated by surgery on arrival to the ER. It is requested that the hospitalist service assume care of the pt following surgery. 1) Acute cholecystitis - POD # 1 - placed on Unasyn, aggressive IVF - narcotics and antiemetics provided PRN. No acute blood loss anemia, pain controlled KYRIE drain in place, can be discharged home with tramadol due to allergy to codeine and follow up with general surgery in 1 weeks 2) Hypothyroidism - TSH is low - would hold off on Synthroid for a few days and follow up with primary prior to resuming. 3) HTN - antihypertensives held - controlled, resume BP meds on discharge. Full code - SCDs Total Time Spent: Greater than 30 minutes This includes examination of the patient, discharge planning, medication reconciliation, and communication with other providers. Discharge Instructions Please refer to the electronic Patient Visit Report (Discharge Instructions) for additional information. Additional Copies To Mark Rose M.D.
--- NOTE | 2017-01-31 16:15 | Progress Note ---
Progress Note Date of Service Jan 31, 2017. (Nini Wheeler ., PA-C) Progress Note Saw patient at 3:15 Still having moderate pain, has only had IV Dilaudid for pain nothing PO KYRIE drain with 75 cc of serosanguineous output, already had 45 cc since surgery Ambulated and urinated without difficulty Would like patient to stay overnight for pain control with oral pain medications and continue KYRIE to bulb suction will re-evaluate in the morning if tolerates oral pain medication will remove KYRIE drain and d/c home. Discussed with Dr. Bradshaw, agrees with above (Nini Wheelre ., PA-C)
[2017-01-31] MEDS ORDERED: TRAMADOL HCL 50 MG TAB ONE (18:28)
[2017-01-31] MEDS ORDERED: NURSING VERBAL MED ORDER ONE (18:30)
[2017-01-31] MEDS: TRAMADOL HCL 50 MG TAB PO PRN (23:47)
[2017-02-01 04:50] VITALS: BP 119/81; PULSE 65; TEMP 36.4; O2SAT 94
[2017-02-01] MEDS: AMPICILLIN/SULBACTAM SOD INJ 3,000 MG in SODIUM CHLORIDE 0.9% 100ML 100 ML IV SCH ×2 (06:12→12:00)
[2017-02-01] MEDS: TRAMADOL HCL 50 MG TAB PO PRN ×2 (07:21→11:51)
[2017-02-01 07:25] VITALS: BP 117/74; PULSE 57; TEMP 37; O2SAT 95
--- NOTE | 2017-02-01 09:37 | Surgery Progress Note ---
Surgery Progress Note Date of Service Feb 01, 2017. Subjective Post OP Day: 1 Patient examined at bedside this morning. Afebrile, vitals stable on room air, no acute events overnight. Pain is adequately controlled this morning with tramadol. Tolerating full liquid diet without N/V, would like to try regular food today. Ambulating and voiding without difficulty. Objective Vital Signs: Date Time Temp Pulse Resp B/P (MAP) Pulse Ox O2 Delivery O2 Flow Rate FiO2 02/01/17 07:25 37.0 57 16 117/74 (88) 95 Room Air 02/01/17 04:50 36.4 65 16 119/81 (94) 94 Room Air 01/31/17 23:00 37.1 68 16 118/75 (89) 94 Room Air 01/31/17 20:00 Room Air 01/31/17 16:10 Room Air 01/31/17 15:00 37.3 70 18 125/77 (93) 94 Room Air 01/31/17 13:32 37.1 71 16 96 Room Air 01/31/17 11:30 37.1 71 16 106/71 (83) 96 Room Air Physical Exam: KYRIE drainage (Serous drainage, small clot noted in tubing) General Appearance: WD/WN, no apparent distress Head: normocephalic Neck: supple Respiratory/Chest: lungs clear, normal breath sounds, no respiratory distress Cardiovascular: regular rate, rhythm Abdomen: normal bowel sounds, non distended, soft, + tenderness (appropriately tender to palpation) Incision(s): clean, dry, intact Assessment & Plan Destiny Yousif is a 56 year old woman who is now POD 1 s/p laparoscopic subtotal cholecystectomy. There were no complications, patient tolerated the procedure well. -Advance to regular diet as tolerated -May be discharged from surgical perspective -Drain may be removed prior to discharge -Patient may remove the dressings on 02/03/17 -Follow up with Dr. Bradshaw in 1 to 2 weeks April Vernon MD 02/01/17
--- NOTE | 2017-02-01 09:48 | Discharge Instructions ---
Discharge Instructions Date of Service Feb 01, 2017. Admission Reason for Admission: Acute Cholecystitis Discharge Discharge Diagnosis / Problem: Acute Cholecystitis Discharge Goals Goal(s): Decrease discomfort, Improve function Activity Recommendations Activity Limitations: as noted below No heavy lifting over 20 pounds for 2 weeks No strenuous activity until cleared by surgeon Walking and light activity is encouraged No submerging incisions underwater for 2 weeks (no bathing, swimming, or hot tubs) No driving while taking narcotic pain medication or until you are pain free . Instructions / Follow-Up Instructions / Follow-Up You may shower in 24 hours, keep dressing dry, let water hit your back. you may wash your hair Remove dressings in 2 days, keep steri strips on incisions for 7 days, if they fall off on their own that is okay. You will need follow-up with Dr. Bradshaw in 2 weeks, please call office at [phone] to make an appointment Current Hospital Diet Patient's current hospital diet: Regular Diet Discharge Diet Recommended Diet: Regular Diet Procedures Procedures Performed: Laparoscopic Subtotal Cholecystectomy Pending Studies Studies pending at discharge: yes List of pending studies: Gallbladder pathology- will be reviewed at follow-up visit Medical Emergencies . Who to Call and When: Medical Emergencies: If at any time you feel your situation is an emergency, please call 911 immediately. . Non-Emergent Contact Non-Emergency issues call your: Primary Care Provider, Surgeon Call Non-Emergent contact if: you have a fever, temperature is above 101.5, your pain is not controlled, your pain is worsening, wound has increased drainage, wound has increased redness, wound has increased pain . "Provider Documentation" section prepared by Nini Wheeler. . VTE Core Measure Inpt VTE Proph given/why not?: SCD's
--- NOTE | 2017-02-01 12:09 | Progress Note ---
Progress Note Date of Service Feb 01, 2017. Progress Note Pt discharged home on 02/01/17 Pain controlled on just ultram VSS Labs reviewed Kept overnight due to increased drainage in KYRIE drain ROS 10 systems reviewed and neg PE Gen NAD alert and oriented x 3 CVS RRR no m/r/g Abd soft NT ND Ext no edema or cyanosis Lungs CTA B/L no w/r/r 56 y/o F Hx Hypothyroidism, HTN, obesity. Pt presents with acute onset and progressive abdominal pain, nausea and copious bilious vomiting. She has not had a fever. Denies CP, SOB or diarrhea. A CT abdomen is consistent with acute cholecystitis. The pt was evaluated by surgery on arrival to the ER. It is requested that the hospitalist service assume care of the pt following surgery. 1) Acute cholecystitis - POD # 1 - placed on Unasyn, aggressive IVF - narcotics and antiemetics provided PRN. No acute blood loss anemia, pain controlled KYRIE drain in place, can be discharged home with tramadol due to allergy to codeine and follow up with general surgery in 1 weeks 2) Hypothyroidism - TSH is low - would hold off on Synthroid for a few days and follow up with primary prior to resuming. 3) HTN - antihypertensives held - controlled, resume BP meds on discharge. Full code - SCDs
== END 2017-02-01 14:29 | disposition home or self-care (01) | DRG 410 ==
LOC: C.EDB 20:19 → C.MSW 22:40 → ENRESERV 01-31 01:13
PROVIDERS: ADMIT Internal Medicine; ATTEND Hospitalist
PROC: 0FC44ZZ Extirpation of Matter from Gallbladder, Percutaneous Endoscopic Approach (ICD-10-PCS; principal; 2017-01-31)
PROC: 0FB44ZZ Excision of Gallbladder, Percutaneous Endoscopic Approach (ICD-10-PCS; principal; 2017-01-31)
DX: K80.00 Calculus of gallbladder with acute cholecystitis without obstruction (principal); E03.9 Hypothyroidism, unspecified; I10 Essential (primary) hypertension; E66.9 Obesity, unspecified; Z68.38 Body mass index [BMI] 38.0-38.9, adult; Z85.42 Personal history of malignant neoplasm of other parts of uterus; Z90.710 Acquired absence of both cervix and uterus; Z79.890 Hormone replacement therapy; Z79.899 Other long term (current) drug therapy; Z88.5 Allergy status to narcotic agent

== ENCOUNTER → 2017-06-18 | Outpatient (CLI) | payer OTHER ==
[~2017-06-18] MED LIST changes: -POTASSIUM CHLR 10 MEQ / WTR 10 MEQ in PREMIXED WATER 100 ML IV SCH; +TRAM-10 PO
--- NOTE | 2017-06-19 07:51 | MAMMOGRAPHY REPORT ---
BILATERAL DIGITAL SCREENING MAMMOGRAM TOMOSYNTHESIS WITH CAD: 06/18/2017 CLINICAL HISTORY: Routine screening. Patient has no complaints. TECHNIQUE: Breast tomosynthesis in addition to standard 2D mammography was performed. Current study was also evaluated with a Computer Aided Detection (CAD) system. COMPARISON: Comparison is made to exams dated: 06/10/2012 mammogram, 06/08/2011 mammogram - [facility], and 09/13/2007. BREAST COMPOSITION: There are scattered areas of fibroglandular density in both breasts. FINDINGS: There is a newly visualized, round, 7 mm partially circumscribed mass in the lower inner a pproximate 7:00 anterior left breast, which could represent a cyst although additional targeted ultra sound and possible additional mammographic views are recommended. No other suspicious mass, architectural distortion or cluster of microcalcifications is seen bilatera lly. IMPRESSION: ACR BI-RADS CATEGORY 0: INCOMPLETE EVALUATION: NEED ADDITIONAL IMAGING EVALUATION The newly visualized round, 7 mm mass in the approximate 7:00 left breast needs additional evaluation . The patient will be called to schedule an appointment. Approximately 10% of breast cancers are not detected with mammography. A negative mammographic report should not delay biopsy if a clinically suggestive mass is present. Naya Holt M.D. ay/:06/18/2017 15:05:02 Piano Case And Bench Assembler: Anna KAT(Salo)([place])([place]), [facility] letter sent: Addl Imaging 0 BI-RADS Code: ACR BI-RADS Category 0: Incomplete Evaluation: Need Additional Imaging Evaluation
== END | disposition home or self-care (01) ==
LOC: C.MAMM 14:44
PROVIDERS: ATTEND Internal Medicine
DX: Z12.31 Encounter for screening mammogram for malignant neoplasm of breast (principal); N63.24 Unspecified lump in the left breast, lower inner quadrant

== ENCOUNTER → 2017-06-27 | Outpatient (CLI) | payer OTHER ==
--- NOTE | 2017-06-27 15:42 | MAMMOGRAPHY REPORT ---
ULTRASOUND OF BOTH BREASTS: 06/27/2017 CLINICAL HISTORY: 56-year-old woman called back from screening mammography for a newly visualized 7 m m round circumscribed mass in the lower inner anterior left breast. COMPARISON: Comparison is made to exams dated: 06/18/2017 mammogram, 06/10/2012 mammogram, 06/08/2011 [facility], 09/13/2007, and 09/13/2007. FINDINGS: Targeted ultrasound was performed in the lower inner quadrant of the left breast. In the 8:00 axis, 2 cm from the nipple, there is a circumscribed anechoic to hypoechoic mass measuring 6.4 x 5.3 x 6.6 mm. This corresponds to the mammographic mass. Although no internal vascularity is demon strated, some of the images appear hypoechoic as opposed to anechoic and no prominent posterior acous tic enhancement is appreciated. Although this could represent a complicated cyst, definitive charact erization with ultrasound guided cyst aspiration is recommended. If this mass does not aspirate then core needle biopsy should be performed. IMPRESSION: ACR BI-RADS CATEGORY 4: SUSPICIOUS - FOLLOW-UP RECOMMENDED There is a 6.6 mm round hypoechoic circumscribed mass in the 8:00 left breast on ultrasound, which co rrelates with the newly visualized mammographic mass. The internal characteristics are hypoechoic as opposed to anechoic and although this could represent a complicated cyst, definitive characterizatio n with ultrasound guided cyst aspiration is recommended to exclude a solid mass. If the mass does no t aspirate, ultrasound-guided core biopsy should be performed. These results and recommendations were discussed with the patient at the time of the exam. She tenta tively scheduled the left breast biopsy prior to leaving our department. Naya Holt M.D. ay/:06/27/2017 13:38:08 Pulmonary Disease Specialist: Dr. Naya Holt, [facility] letter sent: Abnormal 4/5 BI-RADS Code: ACR BI-RADS Category 4: Suspicious
== END | disposition home or self-care (01) ==
LOC: C.MAMM 13:07
PROVIDERS: ATTEND Internal Medicine
DX: N63.20 Unspecified lump in the left breast, unspecified quadrant (principal)

== ENCOUNTER → 2017-07-05 | Outpatient (CLI) | payer OTHER ==
--- NOTE | 2017-07-05 14:34 | MAMMOGRAPHY REPORT ---
ASPIRATION LEFT BREAST: 07/05/2017 CLINICAL HISTORY: Left 8:00 breast mass. PATIENT CONSENT: The procedure and risks of ultrasound-guided cyst aspiration versus biopsy were disc ussed in full with the patient. Both oral and written consents were obtained. PROCEDURE DESCRIPTION: With ultrasound guidance, aseptic technique, and 1% lidocaine as a local anest hetic, the mass of concern in the left 8:00 breast was aspirated to completion using a 22-gauge needl e attached to a syringe. Benign type brown fluid was obtained and discarded. Direct pressure was ap plied to the site immediately post procedure and hemostasis was achieved. The patient tolerated the procedure without complication. She was given wound care instructions. COMPARISON: Comparison is made to exams dated: 06/27/2017 ultrasound, 06/18/2017 mammogram, 06/10/2012 m ammogram, 06/08/2011 mammogram - [facility], and 09/13/2007. IMPRESSION: ASPIRATION Successful ultrasound-guided aspiration of the left 8:00 breast mass. Given that the mass completely aspirated, it is consistent with a benign cyst. The aspirated fluid was discarded. The patient can return to routine annual mammograms, due June 2018. Guerline Matias M.D. /:07/05/2017 11:24:11 Cost Manager: Lu KAT(Salo)(M), [facility]
== END | disposition home or self-care (01) ==
LOC: C.MAMM 10:45
PROVIDERS: ATTEND Internal Medicine
DX: N60.02 Solitary cyst of left breast (principal)

== ENCOUNTER → 2017-08-30 | Outpatient (CLI) | payer OTHER ==
[~2017-08-30] MED LIST changes: -TRAM-10 PO
--- NOTE | 2017-08-30 13:47 | DIAGNOSTIC IMAGING REPORT ---
CT OF THE ABDOMEN AND PELVIS WITHOUT CONTRAST CLINICAL HISTORY: Right flank pain. COMPARISON STUDY: CT of the abdomen and pelvis January 30, 2017. TECHNIQUE: Axial images of the abdomen and pelvis were obtained without IV contrast. Images were reviewed in the axial, sagittal, and coronal planes. A dose lowering technique was utilized adhering to the principles of ALARA. FINDINGS: Evaluation of the abdomen and pelvis is suboptimal on this unenhanced exam. The liver, spleen, adrenal glands, kidneys and pancreas are normal. There is no hydronephrosis or peripancreatic infiltration. There are findings suggestive of a subtotal cholecystectomy. A portion of the gallbladder remains. There is equivocal minimal infiltration adjacent to the residual gallbladder which is likely within normal limits. There is no evidence for a bowel obstruction. The appendix is normal. Fat-containing umbilical hernia is noted. There is also a lower abdominal ventral hernia which contains a loop of small bowel without resultant bowel obstruction. There is a large amount of stool within the rectum. There is no ascites. There is no lymphadenopathy. No suspicious osseous lesions are present. The uterus and ovaries are surgically absent. IMPRESSION: 1. Status post partial cholecystectomy. Equivocal infiltration adjacent to the residual gallbladder is likely artifactual. However, if this patient has persistent right upper quadrant pain, a hepatobiliary nuclear medicine study may be of benefit in further evaluation to exclude cholecystitis. 2. No bowel obstruction. Normal appendix. 3. Lower abdominal ventral hernia which contains a loop of small bowel without resultant bowel obstruction. 4. Large amount stool within the rectum. Electronically signed by: Fernando Tobias M.D. 08/30/2017 1:46 PM Dictated Date/Time: 08/30/2017 1:28 PM
== END | disposition home or self-care (01) ==
LOC: C.CTS 13:05
PROVIDERS: ATTEND Physician Assistant Medical
DX: R10.9 Unspecified abdominal pain (principal); K43.9 Ventral hernia without obstruction or gangrene

== ENCOUNTER → 2017-09-13 | Outpatient (CLI) | payer OTHER ==
[~2017-09-13] MED LIST changes: +OXYC-57 PO; +SINCALIDE INJ 1.9 MCG in SODIUM CHLORIDE 0.9% 100ML 100 ML IV ONE
--- NOTE | 2017-09-13 12:23 | DIAGNOSTIC IMAGING REPORT ---
HEPATOBILIARY HIDA IMAGING CLINICAL HISTORY: 56 years-old Female with RUQ PAIN. Acute right upper quadrant abdominal pain TECHNIQUE: Sequential anterior abdominal images were obtained through 60 minutes following the intravenous administration of 5.9 mCi of technetium-99m Choletec. 4 hour delayed images were also obtained and submitted. Morphine was not administered secondary to reported adverse reaction to the medication per patient history. COMPARISON: CT abdomen and pelvis 08/30/2017 FINDINGS: There is prompt, uniform accumulation of the tracer by the liver. There is normal filling of the intrahepatic ducts and common bile duct with excretion of the tracer into the duodenum. The gallbladder however is not visualized through 60 minutes. Additionally, the gallbladder is not seen on the 2 and 4 hour delayed images. No significant enterogastric reflux identified. No evidence of bile leak. Delayed images demonstrate tracer activity extending to level of the colon. IMPRESSION: Nonvisualization of the gallbladder suggests cystic duct obstruction. Correlate clinically for signs of acute cholecystitis. The above report was generated using voice recognition software. It may contain grammatical, syntax or spelling errors. Electronically signed by: Flakito Sanderson M.D. 09/13/2017 12:21 PM Dictated Date/Time: 09/13/2017 12:16 PM
== END | disposition home or self-care (01) ==
LOC: C.NUCL 07:29
PROVIDERS: ATTEND Physician Assistant Medical
DX: R10.11 Right upper quadrant pain (principal)

== ENCOUNTER 2017-09-19 07:00 | Observation (INO) | payer OTHER ==
[2017-09-19] VITALS (10 sets, daily range): BP systolic 98–151; BP diastolic 64–85; PULSE 69–88; TEMP 36.2–36.8; O2SAT 94–100; Ht 161.3 cm; Wt 94.5 kg
[~2017-09-19] VITALS: Ht 161.3 cm; Wt 94.5 kg
[~2017-09-19 07:00] MED LIST changes: +CEFAZOLIN 2000MG IV PUSH 15 ML IV SCH; +CEFAZOLIN SOD 2000MG/15 ML IV PUSH IV ONE; +LACTATED RINGER'S 1000ML 1,000 ML IV SCH; +LACTATED RINGER'S 1000ML 500 ML IV SCH; -OXYC-57 PO; -SINCALIDE INJ 1.9 MCG in SODIUM CHLORIDE 0.9% 100ML 100 ML IV ONE
[2017-09-19] MEDS ORDERED: DEXAMETHASONE SOD INJ 4 MG/ML VIAL ONE (09:30)
[2017-09-19] MEDS ORDERED: PROPOFOL IV EMULSION 10 MG/ML 20 ML VIAL IV ONE (09:30)
[2017-09-19] MEDS ORDERED: LIDOCAINE HCL 2% 2 ML VIAL (20MG/ML) ONE (09:30)
[2017-09-19] MEDS ORDERED: MIDAZOLAM HCL 1 MG/ML 2ML VIAL ONE (09:30)
[2017-09-19] MEDS ORDERED: ONDANSETRON INJ 2 MG/ML 2 ML VIAL ONE ×2 (09:30→12:53)
[2017-09-19] MEDS ORDERED: FENTANYL CITRATE INJ 50 MCG/1 ML 2 ML VIAL ONE ×4 (09:30→13:05)
[2017-09-19] MEDS ORDERED: ROCURONIUM BROMIDE 10 MG/ML 5 ML VIAL IV ONE ×2 (09:30→10:57)
[2017-09-19] MEDS ORDERED: SCOPOLAMINE 1.5 MG TDSY TD ONE (09:37)
[2017-09-19] MEDS ORDERED: ONDANSETRON INJ 2 MG/ML 2 ML VIAL IV PRN ×2 (09:45→13:15)
[2017-09-19] MEDS ORDERED: EpHEDrine SULFATE INJ 50 MG/ML AMP IV PRN (09:45)
[2017-09-19] MEDS ORDERED: FENTANYL CITRATE INJ 50 MCG/1 ML 2 ML VIAL IV PRN (09:45)
[2017-09-19] MEDS ORDERED: ATROPINE SULFATE 0.1 MG/ML 5ML SYR IV PRN (09:45)
[2017-09-19] MEDS ORDERED: PROMETHAZINE HCL INJ 6.25 MG in SODIUM CHLORIDE 0.9% 50ML 50 ML IV PRN (09:45)
[2017-09-19] MEDS ORDERED: BUPIVACAINE 0.5 % 5 MG/1 ML MPF 30ML VIAL ONE (09:55)
[2017-09-19] MEDS ORDERED: BACITRACIN OINT 15 GM TUBE ONE (09:55)
[2017-09-19] MEDS ORDERED: LIDOCAINE HCL 1% 20 ML VIAL ONE (09:55)
[2017-09-19] MEDS ORDERED: EpHEDrine SULFATE 50MG/5ML SYR ONE (10:26)
[2017-09-19] MEDS ORDERED: HYDROmorphone INJ 2 MG/ML SYR/VIAL ONE (10:36)
[2017-09-19] MEDS ORDERED: NEOSTIGMINE METHYLSULFATE 5 MG/5 ML SYR ONE (12:53)
[2017-09-19] MEDS ORDERED: GLYCOPYRROLATE INJ 0.2 MG/ML VIAL ONE (12:53)
[2017-09-19] MEDS ORDERED: ESMOLOL HCL 10 MG/ML 10 ML VIAL ONE (13:02)
--- NOTE | 2017-09-19 13:04 | [facility] Post Operative Brief Note ---
Immediate Operative Summary Operative Date Sep 19, 2017. Pre-Operative Diagnosis Status post subtotal cholecystectomy Cholecystitis Ventral Hernia Post-Operative Diagnosis Status post subtotal cholecystectomy Cholecystitis Ventral Hernia Procedure(s) Performed Laparoscopic Cholecystectomy, Laparoscopic Ventral Hernia Repair with Mesh Surgeon Dr Bradshaw Welder Fitter Arc Surgeon(s) Nini Blas PA-C Estimated Blood Loss 30 cc Findings Consistent with Post-Op Diagnosis remain partion of gallbladder- cholecystitis, 2 ventral hernia, 3x3cm each Fluids (cc crystalloids) 1800ml Specimens A. Gallbladder Drains None Anesthesia Type General Complication(s) none Disposition Accompanied Pt To Recover: yes Disposition: Recovery Room / PACU
[2017-09-19] MEDS ORDERED: ACETAMINOPHEN 325 MG TAB PO PRN (13:15)
[2017-09-19] MEDS ORDERED: HYDROmorphone INJ 2 MG/ML SYR/VIAL IV PRN (13:15)
[2017-09-19] MEDS ORDERED: OXYC-57 PO ×2 (13:25)
--- NOTE | 2017-09-19 13:34 | Discharge Instructions ---
Discharge Instructions Date of Service Sep 19, 2017. Admission Reason for Admission: Acalculous Cholecystitis, Ventral Hernia Discharge Discharge Diagnosis / Problem: Calculous Cholecystitis (large stone in gallbladder), ventral hernia Discharge Goals Goal(s): Decrease discomfort, Improve function Activity Recommendations Activity Limitations: per Instructions/Follow-up section No heavy lifting over 10 pounds for 4-6 weeks No strenuous activity until cleared by surgeon No submerging incisions underwater for 2 weeks (no bathing, swimming, or hot tubs) No driving while taking narcotic pain medication or until you are pain free . Instructions / Follow-Up Instructions / Follow-Up You may shower in 3 days, sponge bath and wash hair in meantime. Try to keep dressings clean and dry. After 3 days, remove outer dressings and shower. Leave steri strips on incisions for 10 days and then remove. They may fall off on their own that is okay. Walking and light activity is encouraged to prevent blood clots from forming in your legs. No heavy lifting or strenuous activity as above. You will be given narcotic pain medication (Percocet) as needed for moderate to severe pain. This medication may make you drowsy and can cause constipation. To combat constipation, take stool softener (such as Colace) daily and drink plenty of water. You may take a gentle laxative and prune juice if needed. You may take extra strength Tylenol/Ibuprofen as needed for mild pain. Follow-up in surgical office in 2 weeks, please call office at [phone] if you do not already have an appointment. Wear abdominal binder daily for support, you may take it off at bedtime. Current Hospital Diet Patient's current hospital diet: Discharge Diet Recommended Diet: Regular Diet Procedures Procedures Performed: Laparoscopic Cholecystectomy (Resection Residual Gallbladder), Laparoscopic Ventral Hernia Repair with Mesh Pending Studies Studies pending at discharge: yes List of pending studies: Gallbladder pathology, will be reviewed at follow up visit Medical Emergencies . Who to Call and When: Medical Emergencies: If at any time you feel your situation is an emergency, please call 911 immediately. . Non-Emergent Contact Non-Emergency issues call your: Primary Care Provider, Surgeon Call Non-Emergent contact if: you have a fever, temperature is above 101, your pain is not controlled, your pain is worsening, your pain is unusual for you, wound has increased drainage, wound has increased redness, wound has increased pain . "Provider Documentation" section prepared by Nini Blas. . [place] Drug Monitoring Program Search Results: patient reviewed within database, no issues identified
--- NOTE | 2017-09-19 14:17 | Anesthesiology Progress Note ---
Anesthesia Post Op Note Date & Time Sep 19, 2017 at 14:17 Vital Signs Pain Intensity: 0 Vital Signs Past 12 Hours Date Time Temp Pulse Resp B/P (MAP) Pulse Ox O2 Delivery O2 Flow Rate FiO2 09/19/17 14:15 76 16 147/78 100 Oxymask 3 09/19/17 14:00 36.2 75 16 139/87 100 Oxymask 3 09/19/17 13:50 75 16 145/82 100 Oxymask 3 09/19/17 13:40 79 16 140/82 100 Oxymask 5 09/19/17 13:30 74 16 139/87 100 Oxymask 5 09/19/17 13:22 36.0 68 16 127/83 99 Oxymask 5 09/19/17 07:28 36.8 72 18 151/84 (106) 94 Room Air Notes Mental Status: alert / awake / arousable, participated in evaluation Pt Amnestic to Procedure: Yes Nausea / Vomiting: adequately controlled Pain: adequately controlled Airway Patency, RR, SpO2: stable & adequate BP & HR: stable & adequate Hydration State: stable & adequate Anesthetic Complications: no major complications apparent
--- NOTE | 2017-09-19 14:33 | OPERATIVE REPORT ---
DATE OF OPERATION: 09/19/2017 PREOPERATIVE DIAGNOSES: Post-stat laparoscopy, subtotal cholecystectomy, ventral hernia. POSTOPERATIVE DIAGNOSES: Same. OPERATION: Laparoscopy, cholecystectomy, resection of the remaining portion of the gallbladder and laparoscopic repair of ventral hernia with mesh. SURGEON: Dr. Earnest Bradshaw [employer] DRIVER: Nini Blas PA-C ANESTHESIA: General. ESTIMATED BLOOD LOSS: About 30 mL. . FINDINGS: Remaining portion of gallbladder showed chronic cholecystitis. Two ventral hernias on the lower abdomen. The ventral hernia size about 3 x 3 cm each, about 3 cm apart from each. We chose a 20 x 30 cm mesh to repair 2 ventral hernias. COMPLICATIONS: None. IV FLUIDS: 800 mL. INDICATIONS FOR THE PROCEDURE: This is a 56-year-old female who had a laparoscopic subtotal cholecystectomy about 9 months ago and the patient had a significant inflammation on the gallbladder at that time. In the last couple weeks, the patient developed the right upper quadrant pain and we did a CT scan which showed remnant in gallbladder, showed cholecystitis and also the patient has 2 ventral hernias on the lower abdomen. The patient required to do laparoscopy, subtotal cholecystectomy, possible open, possible cholangiogram, and laparoscopic ventral hernia repair with mesh, possible open. I did talk to the patient about the benefit and risk, alternate procedure. I indicated the risks may include but not limited such as bleeding, infection, injury to common bile duct, injury to bowel, bowel obstruction, hernia recurrence, may need ERCP, myocardial infarction, DVT, stroke, even . The patient understands. The patient and her agreed to proceed with the procedure. The patient signed informed consent and I answered all questions. DETAILS OF PROCEDURE: We brought the patient to the OR, put the patient in the supine position. The patient received SCD on bilateral legs to prevent DVT. Also, the patient received general anesthesia without difficulty. The patient received 2 g Ancef IV for prophylactic antibiotic and also the patient received Mccann catheter insertion after anesthesia. The patient's abdomen was prepped and draped in routine sterile fashion. After time out, I injected the local anesthesia just above umbilicus and made about a 1.5 cm incision just above umbilicus, opened fascia and opened peritoneum under direct vision, put a Felipe trocar in, connected to CO2 to create pneumoperitoneum. Flow rate at 6 L per minute. Pressure not more than 14 mmHg. Once we got a nice pneumoperitoneum, we put the camera in, looked around the abdomen, showing there are normal finding on the small bowel, large bowel; however, there are significant omental covers, gallbladder air, and also the patient had some adhesions on the lower abdomen and the patient has 2 ventral hernias on the lower abdomen. After we dissected all adhesions, then, we put another two 5 mm trocar on the right upper quadrant, wiring the 11 trocar on the epigastric area. Once all trocars were in and we used the grasper, hold the liver out and there are some omental covers that remain in gallbladder. So we dissected out and then we hold the gallbladder to try to expose the triangle of Calot. The cystic duct was identified and mobilized and I put two 10 mm metal clip on the proximal cystic duct, one on the distal cystic duct. I used the scissor transecting the cystic duct. Then the cystic artery was identified and mobilized. I put two 5 mm metal clip on the proximal cystic artery, one on the distal cystic artery, used scissor for transecting the cystic artery. Rechecked, no active bleeding, no bile leak and then I used the Bovie to take down the gallbladder from the liver bed. Rechecked, no active bleeding, no bile leak. Then, we removed the gallbladder through the catch bag; then we reinserted Felipe trocar in and then we focused on to the lower abdomen, the 2 ventral hernias. Once we took down all of the adhesions, we found the patient has 2 ventral hernias about 3 cm each and about 3 cm apart each other. Then, we decided to use 20 x 30 cm mesh to cover the 2 ventral hernias. Then, we put the mesh in and then we used the mesh and nicely covered the 2 ventral hernias, overlapped at least 3 cm each other. Rechecked, no active bleeding and at this moment, we removed all trocar under direct vision. No active bleeding from trocar sites. The pneumoperitoneum was released. Then, I used a #1 Vicryl [id number] x2 to close the umbilical incision fascial layer and closed subcutaneous layer by using 2-0 Vicryl interrupted and closed the skin by using 4-0 Vicryl continuous running and epigastric area we closed the fascial layer by using #1 Vicryl [id number] x2, closed the subcutaneous layer by using 2-0 Vicryl, closed the skin by using 4-0 Vicryl and another two 5 mm trocar site, closed the skin only by using 4-0 Vicryl and during procedure we also laid one 5 mm trocar on the right lower quadrant where we closed this 5 mm trocars on the skin only by using 4-0 Vicryl. We put the dressing on. The patient tolerated the procedure well. All the instrument, needle, sponge count were correct x2 at the end of case. The patient extubated in the OR and transferred to recovery room in stable condition. Also, from the patient, we removed the Mccann catheter after procedure and also after procedure, I did talk to the patient and her about OR finding and procedure we did in the OR and I recommend the patient to stay in the hospital overnight. The patient and her understand and she agreed. The patient stayed overnight. The specimen was sent to pathology. I attest to the content of the Intraoperative Record and any orders documented therein. Any exceptions are noted below. ALONZO
[2017-09-19] MEDS: D5W AND 1/2NSS + 20MEQ KCL 1,000 ML IV SCH (15:10)
[2017-09-19] MEDS: CEFAZOLIN IV 1,000 MG in SYRINGE 0 ML IV SCH (18:02)
[2017-09-19] MEDS: OXYCODONE/ACETAMINOPHEN 5-325 TAB PO PRN (20:00)
[2017-09-20] MEDS: CEFAZOLIN IV 1,000 MG in SYRINGE 0 ML IV SCH ×2 (01:40→09:25)
[2017-09-20] MEDS: D5W AND 1/2NSS + 20MEQ KCL 1,000 ML IV SCH (03:33)
[2017-09-20 04:00] VITALS: BP 97/63; PULSE 61; TEMP 36.5; O2SAT 94
[2017-09-20 05:41] LABS: BASO % 0.1 %; BASO ABS # 0.01 K/uL (0-0.2); EOS % 0.2 %; EOS ABS # 0.02 K/uL (0-0.5); HEMATOCRIT 33.4 % (37-47); IG# 0.02 K/uL (0.00-0.02); LYMPH % 6.1 %; LYMPH ABS # 0.64 K/uL (1.2-3.4); MEAN CELL VOLUME 84.1 fL (80-100); MEAN CORPUSCULAR HEMOGLOBIN 27.7 pg (25-34); MEAN CORPUSCULAR HGB CONC 32.9 g/dl (32-36); MEAN PLATELET VOLUME 9.7 fL (7.4-10.4); MONO % 7.4 %; MONO ABS # 0.78 K/uL (0.11-0.59); NEUT ABS # 9.01 K/uL (1.4-6.5); PLATELET COUNT 198 K/uL (130-400); RED CELL DISTRIBUTION WIDTH CV 13.9 % (11.5-14.5); RED CELL DISTRIBUTION WIDTH SD 42.9 fL (36.4-46.3); WHITE BLOOD COUNT 10.48 K/uL (4.8-10.8)
[2017-09-20] MEDS ORDERED: LEVOTHYROXINE 112 MCG TAB PO SCH (06:00)
[2017-09-20 06:19] LABS: ALBUMIN 3.2 gm/dl (3.4-5.0); CALCIUM 8.7 mg/dl (8.5-10.1); CREATININE 0.88 mg/dl (0.60-1.20); POTASSIUM 3.9 mmol/L (3.5-5.1)
[2017-09-20] MEDS: OXYCODONE/ACETAMINOPHEN 5-325 TAB PO PRN ×2 (07:26→11:43)
[2017-09-20 08:09] VITALS: BP 118/78; PULSE 55; TEMP 36.7; O2SAT 98
--- NOTE | 2017-09-20 08:54 | Surgery Progress Note ---
Surgery Progress Note Date of Service Sep 20, 2017. Subjective Post OP Day: 1 + feeling well F/U S/P lap yoel( resection remain a portion of gallbladder), ventral hernia repair with mesh, pt is doing fine, good control incision pain, pt denies nausea , no vomiting, Objective Vital Signs: Date Time Temp Pulse Resp B/P (MAP) Pulse Ox O2 Delivery O2 Flow Rate FiO2 09/20/17 08:09 36.7 55 20 118/78 (91) 98 Room Air 09/20/17 04:00 36.5 61 16 97/63 (74) 94 Room Air 09/19/17 23:22 Room Air 09/19/17 23:05 36.4 71 16 98/64 (75) 96 Room Air 09/19/17 21:15 97 Room Air 09/19/17 19:18 36.8 73 20 125/74 (91) 98 Nasal Cannula 2.0 09/19/17 17:30 36.7 88 16 137/85 (102) 100 Nasal Cannula 2.0 09/19/17 16:30 36.4 85 18 125/81 (96) 100 Nasal Cannula 2.0 09/19/17 15:30 36.4 81 18 125/80 (95) 99 Nasal Cannula 3.0 09/19/17 15:07 Nasal Cannula 2.0 09/19/17 15:00 36.2 69 20 121/78 (92) 99 Nasal Cannula 3.0 09/19/17 14:44 98 Nasal Cannula 3.0 09/19/17 14:30 36.4 80 18 131/83 (99) 98 Nasal Cannula 2.0 09/19/17 14:15 76 16 147/78 100 Oxymask 3 09/19/17 14:00 36.2 75 16 139/87 100 Oxymask 3 09/19/17 13:50 75 16 145/82 100 Oxymask 3 09/19/17 13:40 79 16 140/82 100 Oxymask 5 09/19/17 13:30 74 16 139/87 100 Oxymask 5 09/19/17 13:22 36.0 68 16 127/83 99 Oxymask 5 General Appearance: WD/WN, no apparent distress Head: normocephalic Neck: supple, no JVD Respiratory/Chest: chest non-tender, lungs clear, normal breath sounds Cardiovascular: regular rate, rhythm, no edema, no gallop, no JVD, no murmur Abdomen: normal bowel sounds, non distended, soft, no organomegaly, + tenderness Incision(s): clean, dry, intact Extremities: normal range of motion, non-tender, normal inspection Laboratory Results: Results Past 24 Hours Test 09/20/17 05:15 Range/Units White Blood Count 10.48 4.8-10.8 K/uL Red Blood Count 3.97 4.2-5.4 M/uL Hemoglobin 11.0 12.0-16.0 g/dL Hematocrit 33.4 37-47 % Mean Corpuscular Volume 84.1 80-100 fL Mean Corpuscular Hemoglobin 27.7 25-34 pg Mean Corpuscular Hemoglobin Concent 32.9 32-36 g/dl Platelet Count 198 130-400 K/uL Mean Platelet Volume 9.7 7.4-10.4 fL Neutrophils (%) (Auto) 86.0 % Lymphocytes (%) (Auto) 6.1 % Monocytes (%) (Auto) 7.4 % Eosinophils (%) (Auto) 0.2 % Basophils (%) (Auto) 0.1 % Neutrophils # (Auto) 9.01 1.4-6.5 K/uL Lymphocytes # (Auto) 0.64 1.2-3.4 K/uL Monocytes # (Auto) 0.78 0.11-0.59 K/uL Eosinophils # (Auto) 0.02 0-0.5 K/uL Basophils # (Auto) 0.01 0-0.2 K/uL RDW Standard Deviation 42.9 36.4-46.3 fL RDW Coefficient of Variation 13.9 11.5-14.5 % Immature Granulocyte % (Auto) 0.2 % Immature Granulocyte # (Auto) 0.02 0.00-0.02 K/uL Prothrombin Time 10.7 9.0-12.0 SECONDS Prothromb Time International Ratio 1.0 0.9-1.1 Sodium Level 136 136-145 mmol/L Potassium Level 3.9 3.5-5.1 mmol/L Chloride Level 106 98-107 mmol/L Carbon Dioxide Level 27 21-32 mmol/L Anion Gap 3.0 3-11 mmol/L Blood Urea Nitrogen 15 7-18 mg/dl Creatinine 0.88 0.60-1.20 mg/dl Est Creatinine Clear Calc Drug Dose 76.9 ml/min Estimated GFR () 83.9 Estimated GFR (Non- 72.4 BUN/Creatinine Ratio 16.6 10-20 Random Glucose 125 70-99 mg/dl Calcium Level 8.7 8.5-10.1 mg/dl Total Bilirubin 0.5 0.2-1 mg/dl Aspartate Amino Transf (AST/SGOT) 79 15-37 U/L Alanine Aminotransferase (ALT/SGPT) 168 12-78 U/L Alkaline Phosphatase 100 45-117 U/L Total Protein 7.0 6.4-8.2 gm/dl Albumin 3.2 3.4-5.0 gm/dl Globulin 3.8 2.5-4.0 gm/dl Albumin/Globulin Ratio 0.8 0.9-2 Assessment & Plan pt wants to go home today, pt can be discharged home today, the post-op care instruction was given, F/U co 2 weeks,
[2017-09-20] MEDS ORDERED: HYDROCHLOROTHIAZIDE 25 MG TAB PO SCH (09:00)
[2017-09-20] MEDS ORDERED: ESTRADIOL 1 MG TAB PO SCH (09:00)
[2017-09-20] MEDS ORDERED: ENOXAPARIN 40 MG/0.4 ML SYR SQ SCH (09:00)
[2017-09-20] MEDS ORDERED: LISINOPRIL 10 MG TAB PO SCH (09:00)
[2017-09-20 10:40] VITALS: BP 118/78; PULSE 55; TEMP 36.7; O2SAT 98
[2017-09-20 11:39] VITALS: BP 115/68; PULSE 60; TEMP 36.7; O2SAT 98
--- NOTE | 2017-09-21 11:48 | Discharge Summary ---
Discharge Summary Dates Admission Date / Time: Sep 19, 2017 at 13:09 Discharge Date: Sep 20, 2017 Dispostion / Condition Discharge Disposition: Home Condition at Discharge: Good Principal Diagnosis (1) s/p subtotal cholecystectomy (2) Acute cholecystitis (3) Hernia Consultations / Procedures Consultations: None Procedures: Laparoscopic removal of residual gallbladder and ventral hernia repair with mesh Vaccinations: None Pending Studies / Follow-Up Gallbladder pathology, will be reviewed at follow-up visit Medication Reconciliation New Medications: Oxycodone/Acetaminophen 5MG/325MG (Percocet 5MG/325MG) Tab 1-2 TABLETS PO Q4H PRN for Pain, #30 TAB Continued Medications: Estradiol (Estrace) 1 Mg Tab 1 MG PO DAILY, TAB Hydrochlorothiazide (Hctz) 25 Mg Tab 25 MG PO DAILY, TAB Levothyroxine Sodium (Levothyroxine Sodium) 112 Mcg Tab 112 MCG PO DAILY Lisinopril (Zestril) 10 Mg Tab 10 MG PO DAILY, TAB Admission HPI Per the Admitting provider: Patient has subtotal cholecystectomy a few months back, presented with RUQ abdominal pain, HIDA scan showing gallbladder obstruction concern for acute cholecystitis. Patient also had ventral hernia. She presented to [facility] for outpatient laparoscopic cholecystectomy and ventral hernia repair with mesh. Hospital Course (1) Acute cholecystitis Patient was taken to operating room for laparoscopic removal of residual gallbladder and ventral hernia repair. Patient was found to have moderate adhesions to the gallbladder which prolonged procedure. Moderate omental adhesions to the lower abdominal wall and area of ventral hernia. Patient tolerated procedure well without any difficulties however was admitted to medical/surgical floor post operatively for one evening for pain management and evaluation given extent of procedure. Patient was evaluated on POD # 1. Vitals stable, pain controlled with meds, no nausea or vomiting. Patient was discharged home on POD # 1 in stable condition. f/u surgical office in 2 weeks. (2) Hernia please see above. Hernia was repaired laparoscopically with mesh. Discharge Instructions as given to patient Copies To Primary Care Provider: Mark Rose M.D..
== END 2017-09-20 12:10 | disposition home or self-care (01) ==
LOC: C.ACU 07:00 → C.MSN 13:09 → ENRESERV 13:50
PROVIDERS: ADMIT Surgery; ATTEND Surgery
DX: K80.12 Calculus of gallbladder with acute and chronic cholecystitis without obstruction (principal); K43.9 Ventral hernia without obstruction or gangrene; I10 Essential (primary) hypertension; Z88.5 Allergy status to narcotic agent

== ENCOUNTER → 2017-10-19 | Outpatient (CLI) | payer OTHER ==
[~2017-10-19] MED LIST changes: -CEFAZOLIN 2000MG IV PUSH 15 ML IV SCH; -CEFAZOLIN SOD 2000MG/15 ML IV PUSH IV ONE; -LACTATED RINGER'S 1000ML 1,000 ML IV SCH; -LACTATED RINGER'S 1000ML 500 ML IV SCH; +OXYC-57 PO
[2017-10-19 16:48] LABS: BASO % 0.7 %; BASO ABS # 0.05 K/uL (0-0.2); EOS % 4.6 %; EOS ABS # 0.34 K/uL (0-0.5); HEMATOCRIT 32.6 % (37-47); HEMOGLOBIN 10.6 g/dL (12.0-16.0); IG# 0.02 K/uL (0.00-0.02); LYMPH ABS # 1.32 K/uL (1.2-3.4); MEAN CELL VOLUME 83.2 fL (80-100); MEAN CORPUSCULAR HGB CONC 32.5 g/dl (32-36); MEAN PLATELET VOLUME 10.1 fL (7.4-10.4); MONO ABS # 0.66 K/uL (0.11-0.59); NEUT % 67.4 %; NEUT ABS # 4.95 K/uL (1.4-6.5); PLATELET COUNT 303 K/uL (130-400); RED CELL DISTRIBUTION WIDTH CV 13.1 % (11.5-14.5); RED CELL DISTRIBUTION WIDTH SD 39.4 fL (36.4-46.3); WHITE BLOOD COUNT 7.34 K/uL (4.8-10.8)
[2017-10-19 17:19] LABS: ALBUMIN 3.5 gm/dl (3.4-5.0); ALKALINE PHOSPHATASE 87 U/L (45-117); ALT/SGPT 19 U/L (12-78); AST/SGOT 15 U/L (15-37); BLOOD UREA NITROGEN 15 mg/dl (7-18); CALCIUM 9.3 mg/dl (8.5-10.1); CARBON DIOXIDE 28 mmol/L (21-32); CREATININE 0.93 mg/dl (0.60-1.20); GLUCOSE 115 mg/dl (70-99); LIPASE 106 U/L (73-393); POTASSIUM 3.6 mmol/L (3.5-5.1); SODIUM 137 mmol/L (136-145); TOTAL PROTEIN 8.1 gm/dl (6.4-8.2)
== END | disposition home or self-care (01) ==
LOC: C.LABBFT 13:54
PROVIDERS: ATTEND Physician Assistant Medical
DX: E03.9 Hypothyroidism, unspecified (principal); R10.84 Generalized abdominal pain

== ENCOUNTER → 2018-01-14 | Outpatient (CLI) | payer OTHER | END | disposition home or self-care (01) | LOC: C.LABBFT 13:05 | PROVIDERS: ATTEND Obstetrics & Gynecology | DX: Z85.43 Personal history of malignant neoplasm of ovary (principal) ==